=== PATIENT | female | born 1985 | race Two or more races ===

== ENCOUNTER 2018-09-02 06:58 | Emergency (ER) | payer SELFPAY ==
[~2018-09-02] VITALS: Ht 154.9 cm; Wt 67.1 kg
[~2018-09-02 06:58] MED LIST: AMOX1TAB61 PO; OXYC1TAB7 PO
[2018-09-02] MEDS ORDERED: IV NORMAL SALINE 1000ML BAG 1,000 ML IV SCH (07:23)
[2018-09-02] MEDS ORDERED: HYOSCYAMINE 0.125 MG TAB.RAPDIS PO ONE (07:30)
[2018-09-02] MEDS ORDERED: LIDO:MAALOX 1:1 20 ML SINGLE DOSE. SWSW ONE (07:30)
[2018-09-02] MEDS ORDERED: ONDANSETRON PF 4 MG/2 ML VIAL. IV ONE (07:30)
--- NOTE | 2018-09-02 07:30 | PHYS DOC ---
Past Medical History Past Medical History: No Pertinent History Past Surgical History: Appendectomy, , Tubal ligation Alcohol Use: None Drug Use: None Adult General Chief Complaint Chief Complaint: ABDOMINAL PAIN HPI HPI Patient is a 33 year old female who presents with upper abdominal pain that radiates to the back. Burning and cramping. Nausea and vomiting and is present. This started 2 days ago. She had chest pain at the onset of this discomfort. No fevers, no diarrhea. No blood in the emesis. No recent travel. Nothing seems to make the discomfort better or worse. Patient's surgical history is significant for appendectomy, , and tubal ligation.[] Review of Systems Review of Systems Constitutional: Denies fever or chills [] Eyes: Denies change in visual acuity, redness, or eye pain [] HENT: Denies nasal congestion or sore throat [] Respiratory: Denies cough or shortness of breath [] Cardiovascular: No chest pain currently or palpitations[] GI: See history of present illness[] : Denies dysuria or hematuria [] Musculoskeletal: Denies back pain or joint pain [] Integument: Denies rash or skin lesions [] Neurologic: Denies headache, focal weakness or sensory changes [] Endocrine: Denies polyuria or polydipsia [] All other systems were reviewed and found to be within normal limits, except as documented in this note. Current Medications Current Medications Current Medications Medications (Trade) Dose Ordered Sig/Kalpesh Start Time Stop Time Status Last Admin Dose Admin Hyoscyamine (Anaspaz) 0.125 mg ONCE ONCE 09/02/18 07:30 09/02/18 07:31 DC 09/02/18 07:46 0.125 MG Multi-Ingredient Mouthwash/Gargle (Gi Cocktail) 20 ml 1X ONCE 09/02/18 07:30 09/02/18 07:31 DC 09/02/18 07:48 20 ML Ondansetron HCl (Zofran) 4 mg 1X ONCE 09/02/18 07:30 09/02/18 07:31 DC 09/02/18 07:48 4 MG Sodium Chloride 1,000 ml @ 1,000 mls/hr Q1H 09/02/18 07:23 09/02/18 08:22 DC 09/02/18 07:46 1,000 MLS/HR Allergies Allergies Allergies Coded Allergies Type Severity Reaction Last Updated Verified No Known Drug Allergies 10/10/15 No Physical Exam Physical Exam Constitutional: Well developed, well nourished, no acute distress, non-toxic appearance. [] HENT: Normocephalic, atraumatic, bilateral external ears normal, oropharynx moist, no oral exudates, nose normal. [] Eyes: PERRLA, EOMI, conjunctiva normal, no discharge. [] Neck: Normal range of motion, no tenderness, supple, no stridor. [] Cardiovascular:Heart rate regular rhythm, no murmur [] Lungs & Thorax: Bilateral breath sounds clear to auscultation [] Abdomen: Bowel sounds normal, soft, epigastric tenderness, no Polanco's, no McBurney's point tenderness, sits up without any difficulty, no rebound, no guarding, no rigidity, no masses, no pulsatile masses. [] Skin: Warm, dry, no erythema, no rash. [] Back: No tenderness, no CVA tenderness. [] Extremities: No tenderness, no cyanosis, no clubbing, ROM intact, no edema. [] Neurologic: Alert and oriented X 3, normal motor function, normal sensory function, no focal deficits noted. [] Psychologic: Affect normal, judgement normal, mood normal. [] Current Patient Data Vital Signs Vital Signs Date Time Temp Pulse Resp B/P (MAP) Pulse Ox O2 Delivery O2 Flow Rate FiO2 09/02/18 07:05 98.7 66 16 119/83 (95) 98 Room Air 98.7 Lab Values Laboratory Tests Test 09/02/18 07:05 09/02/18 07:14 09/02/18 07:30 Urine Collection Type Unknown Urine Color Yellow Urine Clarity Cloudy Urine pH 5.5 Urine Specific [place] 1.025 Urine Protein Negative mg/dL (NEG-TRACE) Urine Glucose (UA) Negative mg/dL (NEG) Urine Ketones (Stick) Trace mg/dL (NEG) Urine Blood Large (NEG) Urine Nitrite Negative (NEG) Urine Bilirubin Negative (NEG) Urine Urobilinogen Dipstick 0.2 mg/dL (0.2 mg/dL) Urine Leukocyte Esterase Large (NEG) Urine RBC 6-10 /HPF (0-2) Urine WBC >40 /HPF (0-4) Urine Squamous Epithelial Cells Many /LPF Urine Bacteria Moderate /HPF (0-FEW) Urine Mucus Marked /LPF POC Urine HCG, Qualitative Hcg negative (Negative) White Blood Count 11.3 x10^3/uL (4.0-11.0) H Red Blood Count 4.38 x10^6/uL (3.50-5.40) Hemoglobin 12.7 g/dL (12.0-15.5) Hematocrit 38.1 % (36.0-47.0) Mean Corpuscular Volume 87 fL (79-100) Mean Corpuscular Hemoglobin 29 pg (25-35) Mean Corpuscular Hemoglobin Concent 33 g/dL (31-37) Red Cell Distribution Width 13.6 % (11.5-14.5) Platelet Count 385 x10^3/uL (140-400) Neutrophils (%) (Auto) 73 % (31-73) Lymphocytes (%) (Auto) 19 % (24-48) L Monocytes (%) (Auto) 5 % (0-9) Eosinophils (%) (Auto) 2 % (0-3) Basophils (%) (Auto) 1 % (0-3) Neutrophils # (Auto) 8.3 x10^3uL (1.8-7.7) H Lymphocytes # (Auto) 2.1 x10^3/uL (1.0-4.8) Monocytes # (Auto) 0.6 x10^3/uL (0.0-1.1) Eosinophils # (Auto) 0.2 x10^3/uL (0.0-0.7) Basophils # (Auto) 0.1 x10^3/uL (0.0-0.2) Prothrombin Time 12.9 SEC (11.7-14.0) Prothrombin Time INR 1.0 (0.8-1.1) Sodium Level 141 mmol/L (136-145) Potassium Level 4.3 mmol/L (3.5-5.1) Chloride Level 103 mmol/L (98-107) Carbon Dioxide Level 27 mmol/L (21-32) Anion Gap 11 (6-14) Blood Urea Nitrogen 7 mg/dL (7-20) Creatinine 0.6 mg/dL (0.6-1.0) Estimated GFR (Cockcroft-Gault) 113.8 BUN/Creatinine Ratio 12 (6-20) Glucose Level 136 mg/dL (70-99) H Calcium Level 9.3 mg/dL (8.5-10.1) Total Bilirubin 0.3 mg/dL (0.2-1.0) Aspartate Amino Transferase (AST) 12 U/L (15-37) L Alanine Aminotransferase (ALT) 13 U/L (14-59) L Alkaline Phosphatase 50 U/L (46-116) Troponin I Quantitative < 0.017 ng/mL (0.000-0.055) Total Protein 7.6 g/dL (6.4-8.2) Albumin 3.8 g/dL (3.4-5.0) Albumin/Globulin Ratio 1.0 (1.0-1.7) Lipase 163 U/L (73-393) Laboratory Tests 09/02/18 07:30 Laboratory Tests 09/02/18 07:30 EKG EKG EKG showed a sinus rhythm that was irregular at 58 bpm, normal axis, normal QTC , no ST elevations, nonspecific T-wave changes interpreted by me at 0 750[] Radiology/Procedures Radiology/Procedures CT ABDOMEN PELVIS WO CONTRAST Indication: upper abd pain radiates into left side back x 2 days; nausea
evaluate kidney stone
Exposure: One or more of the following individualized dose reduction techniques were utilized for this examination: 1. Automated exposure control 2. Adjustment of the mA and/or kV according to patient size 3. Use of iterative reconstruction technique. Comparison: None are currently available. Technique: No intravenous contrast given. No oral contrast. Urgent interpretation requested. Evaluation of solid viscera, bowel and vasculature is compromised by the noncontrast technique. Lung bases are clear. Liver and spleen unremarkable. Pancreas appears unremarkable. No adrenal mass. No evidence of hydronephrosis or renal calculus. Ureters are not dilated. The ureters are difficult to define in the pelvis. There is a tiny density in the left pelvis, series 3, image 196, measuring about 2 mm, conceivably could represent an intraureteric stone but not certain. No calcified gallstone. Aorta is nonaneurysmal. No significant lymph node enlargement. No evidence of acute colitis. No evidence of significant small bowel distention. The appendix is not definitely visualized. No concerning inflammatory changes in the right lower quadrant. Several small calcifications or surgical clips in the right lower quadrant. Urinary bladder is not adequately distended for evaluation. No evidence of pelvic mass. Vertebral body height and alignment are intact. Subcortical cysts at the anterior femoral head and neck junctions bilaterally, with anterior cortical protuberance at the head and neck junction as well. This combination of findings can be associated with femoroacetabular impingement. IMPRESSION: 1. Small 2 mm density in the left pelvis, possibly distal ureteric calculus. However, no evidence of proximal ureteric dilatation or hydronephrosis. No other evidence of urolithiasis. 2. 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 (See chart for details) ED course: Patient arrived, was placed in bed, and tolerated exam well. She was given IV fluids as well as antiemetics and antispasmodics which improved her symptoms. She was transported to and from [place] with any complications. After the return of the laboratory and imaging findings, these were discussed with her and her who voiced understanding. All questions were answered. Medical decision making: There is no evidence of pancreatitis, obstruction, cholecystitis, perforation or other significant intra-abdominal pathology. Do not believe that this is due to a kidney stone and low likelihood of pyelonephritis given no significant costovertebral angle tenderness. We will treat her with antiemetics, antispasmodics, proton pump inhibitors, and antibiotics for the urinary tract infection. No evidence of this being an acute coronary syndrome despite the chest pain at the onset.[] Dragon Disclaimer Dragon Disclaimer This electronic medical record was generated, in whole or in part, using a voice recognition dictation system. Departure Departure Impression: Primary Impression: Abdominal pain Additional Impressions: Nausea and vomiting Urinary tract infection Disposition: 01 HOME, SELF-CARE Condition: IMPROVED Referrals: NO PCP (PCP) Patient Instructions: Abdominal Pain, Nausea and Vomiting, Urinary Tract Infection Additional Instructions: Drink plenty of fluids, frequent small sips. No fatty foods, no milk, and no pepper for the next 48 hours. For the next 48 hours eat a diet rich in carbohydrates with foods such as bananas, rice, applesauce, and toast. Follow- up with your regular doctor in 2 days. If you do not have a regular doctor list of local clinics will be provided for you to follow-up with in 2 days. Return to the ER if unable to tolerate liquids or any other concerns. Scripts Ondansetron Hcl (ZOFRAN) 4 Mg Tablet 4 MG PO PRN TID PRN for NAUSEA/VOMITING, #15 nausea/vomiting Prov: ARA TORRES DO 09/02/18 Lansoprazole (PREVACID) 15 Mg Capsule.dr 15 MG PO DAILY, #20 CAP Prov: ARA TORRES DO 09/02/18 Hyoscyamine Sulfate (LEVSIN) 0.125 Mg Tablet 0.125 MG PO QID, #30 TAB Prov: ARA TORRES DO 09/02/18 Cephalexin (CEPHALEXIN) 500 Mg Tablet 1 TAB PO TID, #30 TAB Prov: ARA TORRES DO 09/02/18 Problem Qualifiers Primary Impression: Abdominal pain Abdominal location: epigastric Qualified Codes: R10.13 - Epigastric pain Additional Impressions: Nausea and vomiting Vomiting type: unspecified Vomiting Intractability: non-intractable Qualified Codes: R11.2 - Nausea with vomiting, unspecified Urinary tract infection Urinary tract infection type: site unspecified Hematuria presence: without hematuria Qualified Codes: N39.0 - Urinary tract infection, site not specified ARA TORRES DO Sep 02, 2018 07:29
[2018-09-02 07:59] LABS: CALCIUM 9.3 mg/dL (8.5-10.1); CREATININE 0.6 mg/dL (0.6-1.0); GFR 113.8; POTASSIUM 4.3 mmol/L (3.5-5.1)
[2018-09-02 08:04] LABS: BASO # 0.1 x10^3/uL (0.0-0.2); BASO % 1 % (0-3); EOS # 0.2 x10^3/uL (0.0-0.7); EOS % 2 % (0-3); HEMATOCRIT 38.1 % (36.0-47.0); HEMOGLOBIN 12.7 g/dL (12.0-15.5); LYMPH # 2.1 x10^3/uL (1.0-4.8); LYMPH % 19 % (24-48); MEAN CORPUSCULAR HEMOGLOBIN 29 pg (25-35); MEAN CORPUSCULAR HGB CONC 33 g/dL (31-37); MEAN CORPUSCULAR VOLUME 87 fL (79-100); MONO # 0.6 x10^3/uL (0.0-1.1); MONO % 5 % (0-9); NEUT # 8.3 x10^3uL (1.8-7.7); NEUT % 73 % (31-73); PLATELET COUNT 385 x10^3/uL (140-400); RED BLOOD COUNT 4.38 x10^6/uL (3.50-5.40); RED CELL DISTRIBUTION WIDTH 13.6 % (11.5-14.5); WHITE BLOOD COUNT 11.3 x10^3/uL (4.0-11.0)
[2018-09-02 08:05] LABS: ALBUMIN 3.8 g/dL (3.4-5.0); TOTAL BILIRUBIN 0.3 mg/dL (0.2-1.0); TOTAL PROTEIN 7.6 g/dL (6.4-8.2)
[2018-09-02 08:11] LABS: BILIRUBIN,URINE NEGATIVE (NEG); CLARITY,URINE CLOUDY; COLOR,URINE YELLOW; NITRITE,URINE NEGATIVE (NEG); PH,URINE 5.5; PROTEIN,URINE NEGATIVE (NEG-TRACE); UROBILINOGEN,URINE 0.2 mg/dL (0.2 mg/dL)
[2018-09-02 08:17] LABS: BACTERIA,URINE MODERATE /HPF (0-FEW); WBC,URINE >40 /HPF (0-4)
[2018-09-02 08:18] LABS: SQUAMOUS EPITHELIAL CELL,UR MANY /LPF
[2018-09-02 08:24] LABS: PROTHROMBIN TIME PATIENT 12.9 SEC (11.7-14.0)
--- NOTE | 2018-09-02 08:24 | EKG ---
[facility] [address] [place] [address] Test Date: 2018-09-02 Test Time: 07:48:46 Pat Name: AWILDA CARRINGTON Department: Room: Gender: F Plastics Technician: : 1985 Requested By: ARA TORRES Order Number: [id number] Reading MD: Alexis Agutsin MD Measurements Intervals [employer] Rate: 58 P: CA: QRS: 43 QRSD: 84 T: 41 QT: 412 QTc: 404 Interpretive Statements SR NON-SPECIFIC ST/T CHANGES Electronically Signed On 09-12-2018 21:58:35 CDT by Alexis Agustin MD
--- NOTE | 2018-09-02 08:36 | RAD ---
CT ABDOMEN PELVIS WO CONTRAST Indication: upper abd pain radiates into left side back x 2 days; nausea
evaluate kidney stone
Exposure: One or more of the following individualized dose reduction techniques were utilized for this examination: 1. Automated exposure control 2. Adjustment of the mA and/or kV according to patient size 3. Use of iterative reconstruction technique. Comparison: None are currently available. Technique: No intravenous contrast given. No oral contrast. Urgent interpretation requested. Evaluation of solid viscera, bowel and vasculature is compromised by the noncontrast technique. Lung bases are clear. Liver and spleen unremarkable. Pancreas appears unremarkable. No adrenal mass. No evidence of hydronephrosis or renal calculus. Ureters are not dilated. The ureters are difficult to define in the pelvis. There is a tiny density in the left pelvis, series 3, image 196, measuring about 2 mm, conceivably could represent an intraureteric stone but not certain. No calcified gallstone. Aorta is nonaneurysmal. No significant lymph node enlargement. No evidence of acute colitis. No evidence of significant small bowel distention. The appendix is not definitely visualized. No concerning inflammatory changes in the right lower quadrant. Several small calcifications or surgical clips in the right lower quadrant. Urinary bladder is not adequately distended for evaluation. No evidence of pelvic mass. Vertebral body height and alignment are intact. Subcortical cysts at the anterior femoral head and neck junctions bilaterally, with anterior cortical protuberance at the head and neck junction as well. This combination of findings can be associated with femoroacetabular impingement. IMPRESSION: 1. Small 2 mm density in the left pelvis, possibly distal ureteric calculus. However, no evidence of proximal ureteric dilatation or hydronephrosis. No other evidence of urolithiasis. 2. 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 Electronically signed by: Layton Chance MD (09/02/2018 8:32 AM) [facility]
[2018-09-02 09:00] VITALS: BP 120/69
[2018-09-02] MEDS ORDERED: HYOS0.1264 PO (09:13)
[2018-09-02] MEDS ORDERED: LANS15CA78 PO (09:13)
[2018-09-02] MEDS ORDERED: CEPH500T PO (09:13)
[2018-09-02] MEDS ORDERED: ONDA4TAB7 PO (09:13)
== END 2018-09-02 09:28 | disposition home or self-care (01) ==
LOC: ER 06:58
DX: N39.0 Urinary tract infection, site not specified (principal); R10.13 Epigastric pain; R11.2 Nausea with vomiting, unspecified; Z90.89 Acquired absence of other organs; Z98.890 Other specified postprocedural states; Z98.51 Tubal ligation status
CPT/HCPCS: 36415; 74176; 80053; 81001; 81025; 83690; 84484; 85025; 85610; 93005; 96361; 96374; 99284; J2405; J7030; 87086

== ENCOUNTER 2018-09-02 19:18 | Inpatient (IN) | payer SELFPAY ==
[~2018-09-02] VITALS: Ht 154.9 cm; Wt 69.6 kg
[~2018-09-02 19:18] MED LIST changes: +CEPH500T PO; +HYOS0.1264 PO; +LANS15CA78 PO; +ONDA4TAB7 PO
[2018-09-02] MEDS ORDERED: ONDANSETRON PF 4 MG/2 ML VIAL. ONE (20:48)
[2018-09-02] MEDS ORDERED: fentaNYL PF VIAL 100 MCG/2 ML VIAL ONE (20:48)
[2018-09-02] MEDS ORDERED: ONDANSETRON PF 4 MG/2 ML VIAL. IV ONE ×2 (21:00→22:30)
[2018-09-02] MEDS ORDERED: IV NORMAL SALINE 1000ML BAG 1,000 ML IV ONE (21:00)
[2018-09-02] MEDS ORDERED: fentaNYL PF VIAL 100 MCG/2 ML VIAL IV ONE (21:00)
[2018-09-02] MEDS ORDERED: LIDO:MAALOX 1:1 20 ML SINGLE DOSE. SWSW ONE (21:15)
[2018-09-02 21:16] LABS: BASO # 0.1 x10^3/uL (0.0-0.2); BASO % 1 % (0-3); EOS # 0.1 x10^3/uL (0.0-0.7); EOS % 1 % (0-3); HEMATOCRIT 36.4 % (36.0-47.0); HEMOGLOBIN 12.3 g/dL (12.0-15.5); LYMPH # 2.2 x10^3/uL (1.0-4.8); LYMPH % 16 % (24-48); MEAN CORPUSCULAR HEMOGLOBIN 29 pg (25-35); MEAN CORPUSCULAR HGB CONC 34 g/dL (31-37); MEAN CORPUSCULAR VOLUME 87 fL (79-100); MONO % 7 % (0-9); NEUT # 10.4 x10^3uL (1.8-7.7); NEUT % 76 % (31-73); PLATELET COUNT 369 x10^3/uL (140-400); RED BLOOD COUNT 4.21 x10^6/uL (3.50-5.40); RED CELL DISTRIBUTION WIDTH 13.6 % (11.5-14.5); WHITE BLOOD COUNT 13.7 x10^3/uL (4.0-11.0)
[2018-09-02 21:26] LABS: CALCIUM 8.7 mg/dL (8.5-10.1); CREATININE 0.6 mg/dL (0.6-1.0); GFR 113.8
[2018-09-02 21:32] LABS: ALBUMIN 3.7 g/dL (3.4-5.0); ALBUMIN/GLOBULIN RATIO 0.9 (1.0-1.7); TOTAL BILIRUBIN 0.4 mg/dL (0.2-1.0); TOTAL PROTEIN 7.6 g/dL (6.4-8.2)
[2018-09-02] MEDS ORDERED: MORPHINE SULFATE 4 MG/ML VIAL. IV ONE (22:30)
[2018-09-02] MEDS ORDERED: ONDANSETRON PF 4 MG/2 ML VIAL. IV PRN (22:45)
[2018-09-02] MEDS ORDERED: PIP/TAZO PER PHARMACY MC PRN (22:45)
[2018-09-02] MEDS ORDERED: PIPERACILLIN/TAZOBACTAM 3.375 GM in IV NORMAL SALINE 50ML 50 ML IV ONE (23:00)
[2018-09-02] MEDS: IV NORMAL SALINE 1000ML BAG 1,000 ML IV SCH (23:04)
--- NOTE | 2018-09-02 23:08 | RAD ---
Limited abdomen ultrasound HISTORY: Right upper quadrant abdominal pain, nausea and vomiting. FINDINGS: There are layering dependent gallstones and positive sonographic Polanco sign. Gallbladder wall thickness measures 3.3 mm upper limits of normal. No biliary ductal dilation common body diameters 4 mm. Mild increased liver echogenicity likely steatosis. No liver mass documented. Right renal length 11.3 cm. No evidence right renal mass, calculus or hydronephrosis. Spleen and left kidney were not evaluated. Pancreas is unremarkable. Limited visualization of the aorta. Upper abdominal IVC is normal. IMPRESSION: 1. Cholelithiasis. Borderline gallbladder wall thickening. There is a positive sonographic Polanco sign could indicate early imaging features of cholecystitis. No biliary ductal dilation. 2. Probable liver steatosis. Electronically signed by: Morgan Cantrell MD (09/02/2018 11:06 PM) [facility]
[2018-09-02] MEDS ORDERED: METOCLOPRAMIDE HCL 10 MG/2 ML VIAL. IV ONE (23:15)
[2018-09-02 23:30] VITALS: BP 131/89
--- NOTE | 2018-09-02 23:53 | PHYS DOC ---
Past Medical History Past Medical History: No Pertinent History Past Surgical History: Appendectomy, , Tubal ligation Alcohol Use: None Drug Use: None Adult General Chief Complaint Chief Complaint: ABDOMINAL PAIN HPI HPI Patient is a 33 yo female who presents with complaint of epigastric and RUQ which radiate through to her back. Patient was seen in ED earlier today (09/02/18 ) with similar symptoms, diagnosed with UTI and discharged home on antiemetics, antispasmodics, and antibiotics. She returned to ED this evening complaining that she has had no symptomatic relief. She states the pain began yesterday and has consistently worsened. Patient also reports nausea and vomiting. She admits burning with urination and the occasional presence of blood on the toilet paper after wiping. She denies diarrhea or constipation. She denies bloody or coffee ground emesis. Patient denies recent international travel. She has not tried any medication for pain relief besides what she was prescribed from [facility] ED earlier today. History obtained in Indonesian from patient and patient's partner. Of note patient has had hysterectomy and appendectomy. Review of Systems Review of Systems Constitutional: Denies fever or chills [] Respiratory: Denies cough or shortness of breath [] Cardiovascular: Denies chest pain, denies palpitations. GI: Admits abdominal pain, nausea and bile colored vomiting. Denies diarrhea or constipation. : Admits dysuria. Admits to wiping blood after urinating Musculoskeletal: Admits diffuse midline mid thoracic back pain. All other systems were reviewed and found to be within normal limits, except as documented in this note. Current Medications Current Medications Current Medications Medications (Trade) Dose Ordered Sig/Kalpesh Start Time Stop Time Status Last Admin Dose Admin Fentanyl Citrate (Fentanyl 2ml Vial) 50 mcg 1X ONCE 09/02/18 21:00 09/02/18 21:01 DC 09/02/18 20:58 50 MCG Multi-Ingredient Mouthwash/Gargle (Gi Cocktail) 20 ml 1X ONCE 09/02/18 21:15 09/02/18 21:16 DC 09/02/18 21:22 20 ML Ondansetron HCl (Zofran) 4 mg 1X ONCE 09/02/18 21:00 09/02/18 21:01 DC 09/02/18 20:57 4 MG Sodium Chloride 1,000 ml @ 1,000 mls/hr 1X ONCE 09/02/18 21:00 09/02/18 21:59 DC 09/02/18 20:58 1,000 MLS/HR Allergies Allergies Allergies Coded Allergies Type Severity Reaction Last Updated Verified No Known Drug Allergies 10/10/15 No Physical Exam Physical Exam Constitutional: Well developed, well nourished, tearful, vomiting, clearly uncomfortable HENT: Normocephalic, atraumatic, Neck: Normal range of motion Cardiovascular:Heart rate regular rhythm, no murmur [] Lungs & Thorax: Bilateral breath sounds clear to auscultation [] Abdomen: Bowel sounds normal, soft, Positive polanco's sign. Skin: Warm, dry, no erythema, no rash. [] Back: Mildly tender to palpation. No lesions or rashes noted. No appreciable deformities or step offs] Neurologic: Alert and oriented X 3, normal motor function, normal sensory function, no focal deficits noted. [] Current Patient Data Vital Signs Vital Signs Date Time Temp Pulse Resp B/P (MAP) Pulse Ox O2 Delivery O2 Flow Rate FiO2 09/02/18 20:58 16 99 Room Air 09/02/18 20:54 74 120/73 (89) 09/02/18 19:20 98.6 98.6 Lab Values Laboratory Tests Test 09/02/18 20:44 White Blood Count 13.7 x10^3/uL (4.0-11.0) H Red Blood Count 4.21 x10^6/uL (3.50-5.40) Hemoglobin 12.3 g/dL (12.0-15.5) Hematocrit 36.4 % (36.0-47.0) Mean Corpuscular Volume 87 fL (79-100) Mean Corpuscular Hemoglobin 29 pg (25-35) Mean Corpuscular Hemoglobin Concent 34 g/dL (31-37) Red Cell Distribution Width 13.6 % (11.5-14.5) Platelet Count 369 x10^3/uL (140-400) Neutrophils (%) (Auto) 76 % (31-73) H Lymphocytes (%) (Auto) 16 % (24-48) L Monocytes (%) (Auto) 7 % (0-9) Eosinophils (%) (Auto) 1 % (0-3) Basophils (%) (Auto) 1 % (0-3) Neutrophils # (Auto) 10.4 x10^3uL (1.8-7.7) H Lymphocytes # (Auto) 2.2 x10^3/uL (1.0-4.8) Monocytes # (Auto) 1.0 x10^3/uL (0.0-1.1) Eosinophils # (Auto) 0.1 x10^3/uL (0.0-0.7) Basophils # (Auto) 0.1 x10^3/uL (0.0-0.2) Sodium Level 140 mmol/L (136-145) Potassium Level 4.0 mmol/L (3.5-5.1) Chloride Level 101 mmol/L (98-107) Carbon Dioxide Level 28 mmol/L (21-32) Anion Gap 11 (6-14) Blood Urea Nitrogen 3 mg/dL (7-20) L Creatinine 0.6 mg/dL (0.6-1.0) Estimated GFR (Cockcroft-Gault) 113.8 BUN/Creatinine Ratio 5 (6-20) L Glucose Level 115 mg/dL (70-99) H Calcium Level 8.7 mg/dL (8.5-10.1) Total Bilirubin 0.4 mg/dL (0.2-1.0) Aspartate Amino Transferase (AST) 15 U/L (15-37) Alanine Aminotransferase (ALT) 13 U/L (14-59) L Alkaline Phosphatase 52 U/L (46-116) Total Protein 7.6 g/dL (6.4-8.2) Albumin 3.7 g/dL (3.4-5.0) Albumin/Globulin Ratio 0.9 (1.0-1.7) L Lipase 121 U/L (73-393) Laboratory Tests 09/02/18 20:44 Laboratory Tests 09/02/18 20:44 EKG EKG [] Radiology/Procedures Radiology/Procedures [PROCEDURE: ABDOMEN LTD Limited abdomen ultrasound HISTORY: Right upper quadrant abdominal pain, nausea and vomiting. FINDINGS: There are layering dependent gallstones and positive sonographic Polanco sign. Gallbladder wall thickness measures 3.3 mm upper limits of normal. No biliary ductal dilation common body diameters 4 mm. Mild increased liver echogenicity likely steatosis. No liver mass documented. Right renal length 11.3 cm. No evidence right renal mass, calculus or hydronephrosis. Spleen and left kidney were not evaluated. Pancreas is unremarkable. Limited visualization of the aorta. Upper abdominal IVC is normal. IMPRESSION: 1. Cholelithiasis. Borderline gallbladder wall thickening. There is a positive sonographic Polanco sign could indicate early imaging features of cholecystitis. No biliary ductal dilation. 2. Probable liver steatosis. Electronically signed by: Jesus Cantrell MD (09/02/2018 11:06 PM) [facility] DICTATED and SIGNED BY: JESUS CANTRELL MD DATE: 09/02/18 2306 ] Course & Med Decision Making Course & Med Decision Making Patient is a 33 yo female, Patient returned with complaint of constant , unrelenting abdominal pain. On physical exam vitals are WNL, however patient is diaphoretic, vomiting, and uncomfortable. Abdominal exam significant for epigastric and RUQ tenderness with positive polanco's sign. Remainder of physical exam unremarkable. As patient had CT abd/pelvis earlier today with only significant finding of 2mm density in L pelvis, patient underwent gallbladder US which was significant for cholelithiasis and probable cholelithiasis. Labs revealed elevated WBC and lipase WNL, with values similar to those from earlier today. Addressed patient's pain with multiple doses of toradol and zofran. Patient continued to have pain and vomiting and was treated with morphine and Reglan. Discussed case with Dragan (surgery) who agreed with plan for IV abx and admission. Patietnw as admitted to [facility] for further evaluation. Discussed plan for inpatient hospitalization with patient and partner who verbalized understanding and agreement with plan. Dragon Disclaimer Dragon Disclaimer This electronic medical record was generated, in whole or in part, using a voice recognition dictation system. Departure Departure Impression: Primary Impression: Cholecystitis Disposition: ADMITTED INPATIENT Condition: STABLE Referrals: NO PCP (PCP) COCO LUCERO MD Sep 02, 2018 23:53
[2018-09-03] VITALS (14 sets, daily range): BP systolic 98–121; BP diastolic 56–79
[2018-09-03] MEDS: MORPHINE SULFATE 4 MG/ML VIAL. IV PRN ×2 (01:23→05:44)
[2018-09-03] MEDS: PIPERACILLIN/TAZOBACTAM 3.375 GM in IV NORMAL SALINE 50ML 50 ML IV SCH ×3 (05:46→17:27)
--- NOTE | 2018-09-03 07:18 | NUR ---
admitted to room 422 at 2330 09/02/18, admission assessment done, POC discussed to pt and verbalized understanding .
--- NOTE | 2018-09-03 07:41 | PDOC1 ---
History and Physical Date of Admission Date of Admission DATE: 09/03/18 TIME: 07:32 Identification/Chief Complaint Chief Complaint Abdominal Pain Source Source: Caregiver, Chart review, Patient History of Present Illness History of Present Illness 33 yo female w/ PMHx appendectomy, tubal ligation, gestational diabetes who presents with complaint of epigastric and RUQ which radiate through to her back. Patient was seen in ED yestereday (09/02/18) with similar symptoms, diagnosed with UTI and discharged home on antiemetics, antispasmodics, and antibiotics. She returned to ED this evening complaining that she has had no symptomatic relief. Now she also reports nausea and vomiting. She admits burning with urination and the occasional presence of blood on the toilet paper after wiping. She denies diarrhea or constipation. She denies bloody or coffee ground emesis. Patient denies recent international travel. She has not tried any medication for pain relief. History obtained in Indonesian from patient and patient 's partner. Of note patient has had hysterectomy and appendectomy (10/10/2015). On imaging found with borderline gallbladder wall thickening and a positive sonographic Polanco sign with no ductal dilatation on US and small 2 mm density in the left pelvis, possibly distal ureteric calculus on CT abdomen/pelvis earlier in the day. WBC 13.7 She has an 18, 15, and 2yo at home, worried about carrying her 2yo. Past Medical History Cardiovascular: No pertinent hx Pulmonary: No pertinent hx GI: No pertinent hx Heme/Onc: No pertinent hx Hepatobiliary: No pertinent hx Psych: No pertinent hx Rheumatologic: No pertinent hx Infectious disease: No pertinent hx Renal/: No pertinent hx Endocrine: Other (GESTATIONAL DIABETES) Dermatology: No pertinent hx Grav: 3 Para: 3 Past Surgical History Past Surgical History: Appendectomy, Family History Family History: Diabetes, High Cholestrol Social History Smoke: No ALCOHOL: none Drugs: None Current Medications Current Medications Current Medications Ondansetron HCl (Zofran) 4 mg STK-MED ONCE .ROUTE ; Start 09/02/18 at 20:48; Stop 09/02/18 at 20:49; Status DC Fentanyl Citrate (Fentanyl 2ml Vial) 100 mcg STK-MED ONCE .ROUTE ; Start at 20:48; Stop 09/02/18 at 20:49; Status DC Sodium Chloride 1,000 ml @ 1,000 mls/hr 1X ONCE IV Last administered on 20:58; Start 09/02/18 at 21:00; Stop 09/02/18 at 21:59; Status DC Ondansetron HCl (Zofran) 4 mg 1X ONCE IV Last administered on 09/02/18 20:57; Start 09/02/18 at 21:00; Stop 09/02/18 at 21:01; Status DC Fentanyl Citrate (Fentanyl 2ml Vial) 50 mcg 1X ONCE IV Last administered on 20:58; Start 09/02/18 at 21:00; Stop 09/02/18 at 21:01; Status DC Multi-Ingredient Mouthwash/Gargle (Gi Cocktail) 20 ml 1X ONCE SWSW Last administered on 09/02/18at 21:22; Start 09/02/18 at 21:15; Stop 09/02/18 at 21:16; Status DC Morphine Sulfate (Morphine Sulfate) 4 mg 1X ONCE IV Last administered on at 22:32; Start 09/02/18 at 22:30; Stop 09/02/18 at 22:31; Status DC Ondansetron HCl (Zofran) 4 mg 1X ONCE IV Last administered on 09/02/18 22:33; Start 09/02/18 at 22:30; Stop 09/02/18 at 22:31; Status DC Ondansetron HCl (Zofran) 4 mg PRN Q8HRS PRN IV NAUSEA/VOMITING; Start 09/02/18 at 22:45; Stop 09/03/18 at 22:44 Morphine Sulfate (Morphine Sulfate) 4 mg PRN Q2HR PRN IV PAIN Last administered on 09/03/18 05:44; Start 09/02/18 at 22:45; Stop 09/03/18 at 22:44 Sodium Chloride 1,000 ml @ 100 mls/hr Q10H IV Last administered on 09/02/18at 23 :04; Start 09/02/18 at 22:45; Stop 09/03/18 at 22:44 Piperacillin Sod/ Tazobactam Sod (Zosyn Per Pharmacy) 1 each PRN DAILY PRN MC SEE COMMENTS; Start 09/02/18 at 22:45 Piperacillin Sod/ Tazobactam Sod 3.375 gm/Sodium Chloride 50 ml @ 100 mls/hr 1X ONCE IV Last administered on 09/02/18at 22:53; Start 09/02/18 at 23:00; Stop 09/02/18 at 23:29; Status DC Piperacillin Sod/ Tazobactam Sod 3.375 gm/Sodium Chloride 50 ml @ 100 mls/hr Q6HRS IV Last administered on 09/03/18at 05:46; Start 09/03/18 at 06:00 Metoclopramide HCl (Reglan Vial) 10 mg 1X ONCE IV Last administered on at 23:23; Start 09/02/18 at 23:15; Stop 09/02/18 at 23:16; Status DC Active Scripts Active Zofran (Ondansetron Hcl) 4 Mg Tablet 4 Mg PO PRN TID PRN nausea/vomiting Prevacid (Lansoprazole) 15 Mg Capsule.dr 15 Mg PO DAILY Levsin (Hyoscyamine Sulfate) 0.125 Mg Tablet 0.125 Mg PO QID Cephalexin 500 Mg Tablet 1 Tab PO TID Oxycodone-Acetaminophen 5-325 (Oxycodone Hcl/Acetaminophen) 1 Each Tablet 1 Tab PO PRN Q4HRS PRN Reported Augmentin 875-125 Tablet (Amoxicillin/Potassium Clav) 1 Each Tablet 1 Tab PO BID Allergies Allergies: Coded Allergies: No Known Drug Allergies (Unverified , 10/10/15) ROS General: YES: Fatigue, Malaise; No: Chills, Night Sweats, Appetite, Other PSYCHOLOGICAL ROS: No: Anxiety, Behavioral Disorder, Concentration difficultie , Decreased libido, Depression, Disorientation, Hallucinations, Hostility, Irritablity, Memory difficulties, Mood Swings, Obsessive thoughts, Physical abuse, Sexual abuse, Sleep disturbances, Suicidal ideation, Other Eyes: No Blurry vision, No Decreased vision, No Double vision, No Dry eyes, No Excessive tearing, No Eye Pain, No Itchy Eyes, No Loss of vision, No Photophobia , No Scotomata, No Uses contacts, No Uses glasses, No Other HEENT: No: Heacaches, Visual Changes, Hearing change, Nasal congestion, Nasal discharge, Oral lesions, Sinus pain, Sore Throat, Epistaxis, Sneezing, Snoring, Tinnitus, Vertigo, Vocal changes, Other ALLERGY AND IMMUNOLOGY: No: Hives, Insect Bite Sensitivity, Itchy/Watery Eyes, Nasal Congestion, Post Nasal Drip, Seasonal Allergies, Other Hematological and Lymphatic: No: Bleeding Problems, Blood Clots, Blood Transfusions, Brusing, Night Sweats, Pallor, Swollen Lymph Nodes, Other ENDOCRINE: No: Breast Changes, Galactorrhea, Hair Pattern Changes, Hot Flashes , Malaise/lethargy, Mood Swings, Palpitations, Polydipsia/polyuria, Skin Changes , Temperature Intolerance, Unexpected Weight Changes, Other Breast: No New/Changing Breast Lumps, No Nipple changes, No Nipple discharge, No Other Respiratory: No: Cough, Hemoptysis, Orthopnea, Pleuritic Pain, Shortness of breath, SOB with excertion, Sputum Changes, Stridor, Tachypnea, Wheezing, Other Cardiovascular: No Chest Pain, No Palpitations, No Orthopnea, No Paroxysmal Noc. Dyspnea, No Edema, No Lt Headedness, No Other Gastrointestinal: Yes Nausea, Yes Vomiting, Yes Abdominal Pain; No Diarrhea, No Constipation, No Melena, No Hematochezia, No Other Genitourinary: YES Dysuria, YES Frequency; No Incontinence, No Hematuria, No Retention, No Discharge, No Urgency, No Pain, No Flank Pain, No Other, No , No , No , No , No , No , No Musculoskeletal: No Gait Disturbance, No Joint Pain, No Joint Stiffness, No Joint Swelling, No Muscle Pain, No Muscular Weakness, No Pain In:, No Swelling In:, No Other Neurological: No Behavorial Changes, No Bowel/Bladder ControlChng, No Confusion , No Dizziness, No Gait Disturbance, No Headaches, No Impaired Coord/balance, No Memory Loss, No Numbness/Tingling, No Seizures, No Speech Problems, No Tremors, No Visual Changes, No Weakness, No Other Skin: No Dry Skin, No Eczema, No Hair Changes, No Lumps, No Mole Changes, No Mottling, No Nail Changes, No Pruritus, No Rash, No Skin Lesion Changes, No Other, No Acne Physical Exam General: Alert, Oriented X3, Cooperative, No acute distress HEENT: Atraumatic, PERRLA, EOMI, Mucous membr. moist/pink Lungs: Clear to auscultation, Normal air movement Heart: S1S2, RRR, no gallops, no murmurs Abdomen: Normal bowel sounds, Soft, No hepatosplenomegaly, No masses, Other ( RUQ tender, positive polanco sign) Rectal Exam: not examined Extremities: No clubbing, No cyanosis, No edema, Normal pulses, No tenderness/ swelling Skin: No rashes, No breakdown, No significant lesion Neuro: Normal gait, Normal speech, Strength at 5/5 X4 ext, Normal tone, Sensation intact, Cranial nerves 3-12 NL, Reflexes 2+ Psych/Mental Status: Mental status NL, Mood NL Vitals Vitals Vital Signs Date Time Temp Pulse Resp B/P (MAP) Pulse Ox O2 Delivery O2 Flow Rate FiO2 09/03/18 06:14 20 97 09/03/18 03:00 98.3 71 105/68 (80) Room Air 98.3 Labs Labs Laboratory Tests Test 09/02/18 20:44 White Blood Count 13.7 x10^3/uL (4.0-11.0) Red Blood Count 4.21 x10^6/uL (3.50-5.40) Hemoglobin 12.3 g/dL (12.0-15.5) Hematocrit 36.4 % (36.0-47.0) Mean Corpuscular Volume 87 fL (79-100) Mean Corpuscular Hemoglobin 29 pg (25-35) Mean Corpuscular Hemoglobin Concent 34 g/dL (31-37) Red Cell Distribution Width 13.6 % (11.5-14.5) Platelet Count 369 x10^3/uL (140-400) Neutrophils (%) (Auto) 76 % (31-73) Lymphocytes (%) (Auto) 16 % (24-48) Monocytes (%) (Auto) 7 % (0-9) Eosinophils (%) (Auto) 1 % (0-3) Basophils (%) (Auto) 1 % (0-3) Neutrophils # (Auto) 10.4 x10^3uL (1.8-7.7) Lymphocytes # (Auto) 2.2 x10^3/uL (1.0-4.8) Monocytes # (Auto) 1.0 x10^3/uL (0.0-1.1) Eosinophils # (Auto) 0.1 x10^3/uL (0.0-0.7) Basophils # (Auto) 0.1 x10^3/uL (0.0-0.2) Sodium Level 140 mmol/L (136-145) Potassium Level 4.0 mmol/L (3.5-5.1) Chloride Level 101 mmol/L (98-107) Carbon Dioxide Level 28 mmol/L (21-32) Anion Gap 11 (6-14) Blood Urea Nitrogen 3 mg/dL (7-20) Creatinine 0.6 mg/dL (0.6-1.0) Estimated GFR (Cockcroft-Gault) 113.8 BUN/Creatinine Ratio 5 (6-20) Glucose Level 115 mg/dL (70-99) Calcium Level 8.7 mg/dL (8.5-10.1) Total Bilirubin 0.4 mg/dL (0.2-1.0) Aspartate Amino Transf (AST/SGOT) 15 U/L (15-37) Alanine Aminotransferase (ALT/SGPT) 13 U/L (14-59) Alkaline Phosphatase 52 U/L (46-116) Total Protein 7.6 g/dL (6.4-8.2) Albumin 3.7 g/dL (3.4-5.0) Albumin/Globulin Ratio 0.9 (1.0-1.7) Lipase 121 U/L (73-393) Laboratory Tests Test 09/02/18 20:44 White Blood Count 13.7 x10^3/uL (4.0-11.0) Red Blood Count 4.21 x10^6/uL (3.50-5.40) Hemoglobin 12.3 g/dL (12.0-15.5) Hematocrit 36.4 % (36.0-47.0) Mean Corpuscular Volume 87 fL (79-100) Mean Corpuscular Hemoglobin 29 pg (25-35) Mean Corpuscular Hemoglobin Concent 34 g/dL (31-37) Red Cell Distribution Width 13.6 % (11.5-14.5) Platelet Count 369 x10^3/uL (140-400) Neutrophils (%) (Auto) 76 % (31-73) Lymphocytes (%) (Auto) 16 % (24-48) Monocytes (%) (Auto) 7 % (0-9) Eosinophils (%) (Auto) 1 % (0-3) Basophils (%) (Auto) 1 % (0-3) Neutrophils # (Auto) 10.4 x10^3uL (1.8-7.7) Lymphocytes # (Auto) 2.2 x10^3/uL (1.0-4.8) Monocytes # (Auto) 1.0 x10^3/uL (0.0-1.1) Eosinophils # (Auto) 0.1 x10^3/uL (0.0-0.7) Basophils # (Auto) 0.1 x10^3/uL (0.0-0.2) Sodium Level 140 mmol/L (136-145) Potassium Level 4.0 mmol/L (3.5-5.1) Chloride Level 101 mmol/L (98-107) Carbon Dioxide Level 28 mmol/L (21-32) Anion Gap 11 (6-14) Blood Urea Nitrogen 3 mg/dL (7-20) Creatinine 0.6 mg/dL (0.6-1.0) Estimated GFR (Cockcroft-Gault) 113.8 BUN/Creatinine Ratio 5 (6-20) Glucose Level 115 mg/dL (70-99) Calcium Level 8.7 mg/dL (8.5-10.1) Total Bilirubin 0.4 mg/dL (0.2-1.0) Aspartate Amino Transf (AST/SGOT) 15 U/L (15-37) Alanine Aminotransferase (ALT/SGPT) 13 U/L (14-59) Alkaline Phosphatase 52 U/L (46-116) Total Protein 7.6 g/dL (6.4-8.2) Albumin 3.7 g/dL (3.4-5.0) Albumin/Globulin Ratio 0.9 (1.0-1.7) Lipase 121 U/L (73-393) Images Images Abd US - 1. Cholelithiasis. Borderline gallbladder wall thickening. There is a positive sonographic Polanco sign could indicate early imaging features of cholecystitis. No biliary ductal dilation. 2. Probable liver steatosis. CT abd/pelvis 1. Small 2 mm density in the left pelvis, possibly distal ureteric calculus. However, no evidence of proximal ureteric dilatation or hydronephrosis. No other evidence of urolithiasis. 2. 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 VTE Prophylaxis Ordered VTE Prophylaxis Devices: Yes VTE Pharmacological Prophylaxi: No Assessment/Plan Assessment/Plan A/P: Abdominal pain - with mild leukocytosis and positive sonographic polanco's sign, this is equivocal, but leaning toward cholecystitis. Likely at some point needs to have cholecystectomy, given she has already come twice with symptoms to the ED, this may be indicated this stay. Consult general surgery. NPO Overweight - risk factor for GB disease, along with gender, fertility Hyperglycemia - with PMHx of gestational DM, could be secondary to stress. Had fasting glucose > 140 back in 2015, will check A1c and lipids on her UTI - awaiting culture results, positive LE. Cont zosyn for coverage FEN - NPO PPX - SCDs FULL CODE Inpatient for likely cholecystitis. She is scared about surgery, but states if necessary she would like the pain to go away as it is still present despite 1 day of NPO and IV pain medications. D/w patient and significant other bedside, she wishes to go forward with surgery. CHARAN ANTONIO MD Sep 03, 2018 07:41
[2018-09-03] MEDS ORDERED: BUPIVAC MPF-EPI 0.5%-1:200000 30 ML VIAL. ONE (08:26)
[2018-09-03] MEDS ORDERED: GLUCAGON,HUMAN RECOMBINANT 1 MG/ML VIAL. ONE (08:26)
[2018-09-03] MEDS ORDERED: SURGICEL HEMOSTAT 4X8 EACH. ONE (08:26)
[2018-09-03] MEDS ORDERED: IOHEXOL 300 MG/ML 100ML VIAL. ONE (08:26)
[2018-09-03] MEDS: IV NORMAL SALINE 1000ML BAG 1,000 ML IV SCH ×2 (08:45→18:17)
[2018-09-03] MEDS: HYOSCYAMINE 0.125 MG TAB.RAPDIS PO SCH ×4 (08:51→21:24)
--- NOTE | 2018-09-03 09:14 | PDOC2 ---
CONSULT Date of Consult Date of Consult DATE: 09/03/18 TIME: 09:07 Reason for Consult Reason for Consult: symptomatic cholelithiasis Referring Physician Referring Physician: Dr Cha Identification/Chief Complaint Chief Complaint RUQ pain Source Source: Caregiver, Chart review, Patient History of Present Illness Reason for Visit: Marsha is a 33 yo female who made her second visit to the ED last noc for RUQ pain . US showed stones and mild inflammation. We are asked to see for same Past Medical History Cardiovascular: No pertinent hx Pulmonary: No pertinent hx GI: No pertinent hx Heme/Onc: No pertinent hx Hepatobiliary: No pertinent hx Psych: No pertinent hx Rheumatologic: No pertinent hx Infectious disease: No pertinent hx Renal/: No pertinent hx Endocrine: No pertinent hx Past Surgical History Past Surgical History: Appendectomy, , Other (tubal) Family History Family History: No Significant Social History No ALCOHOL: none Drugs: None Current Medications Current Medications Current Medications Ondansetron HCl (Zofran) 4 mg STK-MED ONCE .ROUTE ; Start 09/02/18 at 20:48; Stop 09/02/18 at 20:49; Status DC Fentanyl Citrate (Fentanyl 2ml Vial) 100 mcg STK-MED ONCE .ROUTE ; Start at 20:48; Stop 09/02/18 at 20:49; Status DC Sodium Chloride 1,000 ml @ 1,000 mls/hr 1X ONCE IV Last administered on at 20:58; Start 09/02/18 at 21:00; Stop 09/02/18 at 21:59; Status DC Ondansetron HCl (Zofran) 4 mg 1X ONCE IV Last administered on 09/02/18at 20:57; Start 09/02/18 at 21:00; Stop 09/02/18 at 21:01; Status DC Fentanyl Citrate (Fentanyl 2ml Vial) 50 mcg 1X ONCE IV Last administered on 09/02/18at 20:58; Start 09/02/18 at 21:00; Stop 09/02/18 at 21:01; Status DC Multi-Ingredient Mouthwash/Gargle (Gi Cocktail) 20 ml 1X ONCE SWSW Last administered on 09/02/18at 21:22; Start 09/02/18 at 21:15; Stop 09/02/18 at 21:16; Status DC Morphine Sulfate (Morphine Sulfate) 4 mg 1X ONCE IV Last administered on 22:32; Start 09/02/18 at 22:30; Stop 09/02/18 at 22:31; Status DC Ondansetron HCl (Zofran) 4 mg 1X ONCE IV Last administered on 09/02/18at 22:33; Start 09/02/18 at 22:30; Stop 09/02/18 at 22:31; Status DC Ondansetron HCl (Zofran) 4 mg PRN Q8HRS PRN IV NAUSEA/VOMITING; Start 09/02/18 at 22:45; Stop 09/03/18 at 22:44 Morphine Sulfate (Morphine Sulfate) 4 mg PRN Q2HR PRN IV PAIN Last administered on 09/03/18at 05:44; Start 09/02/18 at 22:45; Stop 09/03/18 at 22:44 Sodium Chloride 1,000 ml @ 100 mls/hr Q10H IV Last administered on 09/02/18at 23 :04; Start 09/02/18 at 22:45; Stop 09/03/18 at 22:44 Piperacillin Sod/ Tazobactam Sod (Zosyn Per Pharmacy) 1 each PRN DAILY PRN MC SEE COMMENTS; Start 09/02/18 at 22:45 Piperacillin Sod/ Tazobactam Sod 3.375 gm/Sodium Chloride 50 ml @ 100 mls/hr 1X ONCE IV Last administered on 09/02/18at 22:53; Start 09/02/18 at 23:00; Stop 09/02/18 at 23:29; Status DC Piperacillin Sod/ Tazobactam Sod 3.375 gm/Sodium Chloride 50 ml @ 100 mls/hr Q6HRS IV Last administered on 09/03/18at 05:46; Start 09/03/18 at 06:00 Metoclopramide HCl (Reglan Vial) 10 mg 1X ONCE IV Last administered on at 23:23; Start 09/02/18 at 23:15; Stop 09/02/18 at 23:16; Status DC Hyoscyamine (Anaspaz) 0.125 mg QID PO Last administered on 09/03/18at 08:51; Start 09/03/18 at 09:00 Pantoprazole Sodium (Protonix) 40 mg DAILYAC PO ; Start 09/04/18 at 07:30 Active Scripts Active Zofran (Ondansetron Hcl) 4 Mg Tablet 4 Mg PO PRN TID PRN nausea/vomiting Prevacid (Lansoprazole) 15 Mg Capsule.dr 15 Mg PO DAILY Levsin (Hyoscyamine Sulfate) 0.125 Mg Tablet 0.125 Mg PO QID Cephalexin 500 Mg Tablet 1 Tab PO TID Oxycodone-Acetaminophen 5-325 (Oxycodone Hcl/Acetaminophen) 1 Each Tablet 1 Tab PO PRN Q4HRS PRN Reported Augmentin 875-125 Tablet (Amoxicillin/Potassium Clav) 1 Each Tablet 1 Tab PO BID Allergies Allergies: Coded Allergies: No Known Drug Allergies (Unverified , 10/10/15) ROS Gastrointestinal: Yes Nausea, Yes Abdominal Pain Physical Exam General: Alert, Cooperative, No acute distress HEENT: Atraumatic Lungs: Normal air movement Heart: Regular rate Abdomen: Soft, Other (minimally TTP in the RUQ) Extremities: No clubbing Skin: Other (warm, dry) Neuro: Normal speech Vitals VITALS Vital Signs Date Time Temp Pulse Resp B/P (MAP) Pulse Ox O2 Delivery O2 Flow Rate FiO2 09/03/18 07:00 97.9 78 18 121/79 (93) 97 Room Air 97.9 Labs Labs Laboratory Tests Test 09/02/18 20:44 White Blood Count 13.7 x10^3/uL (4.0-11.0) Red Blood Count 4.21 x10^6/uL (3.50-5.40) Hemoglobin 12.3 g/dL (12.0-15.5) Hematocrit 36.4 % (36.0-47.0) Mean Corpuscular Volume 87 fL (79-100) Mean Corpuscular Hemoglobin 29 pg (25-35) Mean Corpuscular Hemoglobin Concent 34 g/dL (31-37) Red Cell Distribution Width 13.6 % (11.5-14.5) Platelet Count 369 x10^3/uL (140-400) Neutrophils (%) (Auto) 76 % (31-73) Lymphocytes (%) (Auto) 16 % (24-48) Monocytes (%) (Auto) 7 % (0-9) Eosinophils (%) (Auto) 1 % (0-3) Basophils (%) (Auto) 1 % (0-3) Neutrophils # (Auto) 10.4 x10^3uL (1.8-7.7) Lymphocytes # (Auto) 2.2 x10^3/uL (1.0-4.8) Monocytes # (Auto) 1.0 x10^3/uL (0.0-1.1) Eosinophils # (Auto) 0.1 x10^3/uL (0.0-0.7) Basophils # (Auto) 0.1 x10^3/uL (0.0-0.2) Sodium Level 140 mmol/L (136-145) Potassium Level 4.0 mmol/L (3.5-5.1) Chloride Level 101 mmol/L (98-107) Carbon Dioxide Level 28 mmol/L (21-32) Anion Gap 11 (6-14) Blood Urea Nitrogen 3 mg/dL (7-20) Creatinine 0.6 mg/dL (0.6-1.0) Estimated GFR (Cockcroft-Gault) 113.8 BUN/Creatinine Ratio 5 (6-20) Glucose Level 115 mg/dL (70-99) Calcium Level 8.7 mg/dL (8.5-10.1) Total Bilirubin 0.4 mg/dL (0.2-1.0) Aspartate Amino Transf (AST/SGOT) 15 U/L (15-37) Alanine Aminotransferase (ALT/SGPT) 13 U/L (14-59) Alkaline Phosphatase 52 U/L (46-116) Total Protein 7.6 g/dL (6.4-8.2) Albumin 3.7 g/dL (3.4-5.0) Albumin/Globulin Ratio 0.9 (1.0-1.7) Lipase 121 U/L (73-393) Laboratory Tests Test 09/02/18 20:44 White Blood Count 13.7 x10^3/uL (4.0-11.0) Red Blood Count 4.21 x10^6/uL (3.50-5.40) Hemoglobin 12.3 g/dL (12.0-15.5) Hematocrit 36.4 % (36.0-47.0) Mean Corpuscular Volume 87 fL (79-100) Mean Corpuscular Hemoglobin 29 pg (25-35) Mean Corpuscular Hemoglobin Concent 34 g/dL (31-37) Red Cell Distribution Width 13.6 % (11.5-14.5) Platelet Count 369 x10^3/uL (140-400) Neutrophils (%) (Auto) 76 % (31-73) Lymphocytes (%) (Auto) 16 % (24-48) Monocytes (%) (Auto) 7 % (0-9) Eosinophils (%) (Auto) 1 % (0-3) Basophils (%) (Auto) 1 % (0-3) Neutrophils # (Auto) 10.4 x10^3uL (1.8-7.7) Lymphocytes # (Auto) 2.2 x10^3/uL (1.0-4.8) Monocytes # (Auto) 1.0 x10^3/uL (0.0-1.1) Eosinophils # (Auto) 0.1 x10^3/uL (0.0-0.7) Basophils # (Auto) 0.1 x10^3/uL (0.0-0.2) Sodium Level 140 mmol/L (136-145) Potassium Level 4.0 mmol/L (3.5-5.1) Chloride Level 101 mmol/L (98-107) Carbon Dioxide Level 28 mmol/L (21-32) Anion Gap 11 (6-14) Blood Urea Nitrogen 3 mg/dL (7-20) Creatinine 0.6 mg/dL (0.6-1.0) Estimated GFR (Cockcroft-Gault) 113.8 BUN/Creatinine Ratio 5 (6-20) Glucose Level 115 mg/dL (70-99) Calcium Level 8.7 mg/dL (8.5-10.1) Total Bilirubin 0.4 mg/dL (0.2-1.0) Aspartate Amino Transf (AST/SGOT) 15 U/L (15-37) Alanine Aminotransferase (ALT/SGPT) 13 U/L (14-59) Alkaline Phosphatase 52 U/L (46-116) Total Protein 7.6 g/dL (6.4-8.2) Albumin 3.7 g/dL (3.4-5.0) Albumin/Globulin Ratio 0.9 (1.0-1.7) Lipase 121 U/L (73-393) Images Images US from last noc is reviewed Assessment/Plan Assessment/Plan symptomatic cholelithiasis subacute cholecystitis with her 's help translating explained risks of l/s lexii including but not limited to bleeding, infection, injury to bowel, liver or bile ducts with bile leak or bile blockage needing further surgical intervention, possible open or diarrhea post op. also persistent sx despite lexii questions answered she will proceed Thanks for consult WING BOURGEOIS MD Sep 03, 2018 09:14
[2018-09-03] MEDS: INSULIN LISPRO 300 UNITS/3 ML INSULN.PEN. SQ SCH ×3 (09:15→17:25)
[2018-09-03] MEDS ORDERED: DEXTROSE 50% 25 GM / 50ML DISP.SYRIN. IV PRN ×2 (09:15→11:30)
[2018-09-03] MEDS ORDERED: IV RINGERS,LACTATED 1000ML 1,000 ML IV SCH (09:22)
[2018-09-03] MEDS ORDERED: LIDOCAINE 1% PF 2 ML VIAL. ID PRN (09:30)
[2018-09-03] MEDS ORDERED: PROCHLORPERAZINE 10 MG/2 ML VIAL. IV PRN (09:30)
[2018-09-03] MEDS ORDERED: fentaNYL PF VIAL 100 MCG/2 ML VIAL IV PRN (09:30)
[2018-09-03] MEDS ORDERED: ONDANSETRON PF 4 MG/2 ML VIAL. IV PRN ×2 (09:30→11:30)
[2018-09-03] MEDS ORDERED: HYDROmorphone 2 MG/ML VIAL IV PRN (09:30)
[2018-09-03] MEDS ORDERED: MORPHINE SULFATE 2 MG/ML VIAL. IV PRN (09:30)
[2018-09-03] MEDS ORDERED: LIDOCAINE 2% PF 5 ML VIAL. ONE (09:32)
[2018-09-03] MEDS ORDERED: fentaNYL PF VIAL 100 MCG/2 ML VIAL ONE ×3 (09:32→12:01)
[2018-09-03] MEDS ORDERED: ROCURONIUM 50 MG/5 ML VIAL. ONE (09:32)
[2018-09-03] MEDS ORDERED: PROPOFOL 20 ML IV ONE (09:32)
[2018-09-03] MEDS ORDERED: SUCCINYLCHOLINE 200 MG/10 ML VIAL. ONE (09:32)
[2018-09-03 10:10] LABS: CHOLESTEROL/HDL RATIO 4.4
[2018-09-03] MEDS ORDERED: GLYCOPYRROLATE 1 MG/5 ML VIAL. ONE (10:20)
[2018-09-03] MEDS ORDERED: NEOSTIGMINE 10 MG/10 ML VIAL. ONE (10:20)
[2018-09-03] MEDS ORDERED: ONDANSETRON PF 4 MG/2 ML VIAL. ONE (10:45)
[2018-09-03] MEDS ORDERED: DEXAMETHASONE SOD PHOS 20 MG/5 ML VIAL. ONE (10:45)
[2018-09-03] MEDS ORDERED: DESFLURANE 31 TO 60 MINUTES IH ONE (10:45)
--- NOTE | 2018-09-03 11:12 | RAD ---
Operative cholangiogram. HISTORY: Cholelithiasis Images were obtained from an operative cholangiogram. There are surgical clips. There is a wire marker possibly a sponge. Contrast injection the cystic duct showed the common duct was normal in appearance. There is no filling defect or bile duct stone. IMPRESSION: 1. Negative operative cholangiogram. 2. Wire markers possibly sponges although not necessarily in the patient. Electronically signed by: Blake Lloyd MD (09/03/2018 11:09 AM) [facility]
[2018-09-03] MEDS ORDERED: 0.9 % SODIUM CHLORIDE 10 ML DISP.SYRIN. IV PRN (11:30)
[2018-09-03] MEDS ORDERED: diphenhydrAMINE HCL 25 MG CAPSULE PO PRN (11:30)
--- NOTE | 2018-09-03 11:32 | PDOC ---
BRIEF OPERATIVE NOTE Date: Sep 03, 2018 Pre-Op Diagnosis cholelithiasis, subacute cholecystitis Post-Op Diagnosis cholelithiasis, acute cholecystitis, omental adhesions to the abdominal wall Procedure Performed l/s ELIAS viveros Surgeon Dragan Anesthesia Type: General Blood Loss 20cc IV Fluid 1500cc Specimens Obtained GB Findings acute cholecystitis with a distended, edematous GB, omental adhesions to abdominal wall RUQ, low midline Complications none WING BOURGEOIS MD Sep 03, 2018 11:32
[2018-09-03] MEDS: DOCUSATE SODIUM 100 MG CAPSULE. PO SCH ×2 (12:00→21:24)
[2018-09-03] MEDS: fentaNYL PF VIAL 100 MCG/2 ML VIAL IV PRN ×3 (12:10→12:46)
[2018-09-03] MEDS: POTASSIUM CL 20MEQ-0.45% NACL 1,000 ML IV SCH ×2 (14:35→23:53)
[2018-09-03] MEDS: HYDROmorphone 2 MG/ML VIAL IV PRN ×2 (14:36→17:35)
--- NOTE | 2018-09-03 17:03 | OP ---
DATE OF SURGERY: 09/03/2018 PREOPERATIVE DIAGNOSES: Cholelithiasis with subacute cholecystitis. POSTOPERATIVE DIAGNOSES: Cholelithiasis with acute cholecystitis, omental adhesions to the abdominal wall. PROCEDURE: Laparoscopic cholecystectomy with cholangiogram, lysis of adhesions. SURGEON: Rudolph Bourgeois MD ANESTHESIA: General endotracheal. ESTIMATED BLOOD LOSS: 20. IV: 1500. INDICATIONS: The patient is a 33-year-old with right upper quadrant pain and ultrasound evidence of cholelithiasis and some gallbladder changes, brought for cholecystectomy. OPERATIVE FINDINGS: There was a single strand of omentum adhered to the abdominal wall in the right upper quadrant along with some omental adhesions in the low midline from previous procedures. The gallbladder was distended and edematous with some omental adhesions on the inferior aspect. A moderate amount of turbid fluid was present in the abdomen. No other abnormalities seen. DESCRIPTION OF PROCEDURE: The patient brought to the operating suite, given a general endotracheal anesthetic and the abdomen prepped and draped in usual sterile fashion. A supraumbilical incision was infiltrated with local, incised and a 5 mm Visiport used to safely gain access into the abdominal cavity, taking care to avoid injury to abdominal contents. Pneumoperitoneum established. Camera inserted. Inspection carried out with results as noted above. With the table in reverse Trendelenburg rolled to the left, the epigastric, midclavicular and lateral ports were placed. This allowed lysis of the omental adhesions off the abdominal wall with the LigaSure, being careful to avoid injury to any bowel. Once this was done, we were able to move the camera port inferiorly below the umbilicus and have better visualization of the right upper quadrant. The gallbladder was aspirated of approximately 80 mL of thick bile. This allowed grasping of the fundus and retracting superolaterally. An edematous adhesions along the inferior neck of the gallbladder were carefully swept off with blunt and cautery dissection, identifying and exposing the cystic duct and cystic artery. The duct was clipped on the gallbladder side. Cholangiograms were made. These were normal. In light of this, the catheter was removed. The cystic duct was clipped x 3 and divided, taking care to avoid injury or compromise of the common duct. The cystic artery was clipped x 2 and divided. The gallbladder freed from the bed with cautery dissection and placed in an EndoCatch bag. No evidence of bile leak in the fossa. Hemostasis obtained with cautery and a small piece of Surgicel. A 19-Icelandic round Garland drain was brought through the epigastric port out the lateral ports, sewn to the skin with a silk stitch and left in the subhepatic space for postoperative drainage. Table returned to level. Gallbladder delivered through the epigastric incision. Epigastric incision closed with interrupted 0 Vicryl suture. With intra-abdominal pressure at 6 cm of water, no bleeding seen from the epigastric closure or from the midclavicular port site after its removal or from the drain site. Abdomen decompressed, camera slowly removed, no bleeding seen. Skin incisions closed with subcuticular 4-0 Monocryl. Steri-Strips and sterile dressings applied. The patient awakened from her anesthetic and taken to the recovery room in satisfactory condition. RUDOLPH BOURGEOIS MD DR: BELKIS/kayley JOB#: [id number] / [id number]
[2018-09-03] MEDS: LACTOBACILLUS RHAMNOSUS GG 1 CAPSULE. PO SCH (21:24)
[2018-09-03] MEDS: HYDROcodone/APAP 5/325MG 1 TAB TABLET PO PRN ×2 (21:32→22:29)
[2018-09-04 00:07] LABS: HEMOGLOBIN A1C 5.7 % (4.8-5.6)
[2018-09-04] MEDS: PIPERACILLIN/TAZOBACTAM 3.375 GM in IV NORMAL SALINE 50ML 50 ML IV SCH ×3 (00:32→12:08)
[2018-09-04 03:00] VITALS: BP 108/69
[2018-09-04] MEDS: POTASSIUM CL 20MEQ-0.45% NACL 1,000 ML IV SCH (05:10)
[2018-09-04] MEDS: HYDROcodone/APAP 5/325MG 1 TAB TABLET PO PRN ×4 (05:16→23:46)
[2018-09-04] MEDS: HYDROmorphone 2 MG/ML VIAL IV PRN (06:02)
[2018-09-04 07:00] VITALS: BP 108/78
[2018-09-04] MEDS: INSULIN LISPRO 300 UNITS/3 ML INSULN.PEN. SQ SCH ×5 (07:43→21:00)
[2018-09-04] MEDS: HYOSCYAMINE 0.125 MG TAB.RAPDIS PO SCH ×4 (08:25→19:41)
[2018-09-04] MEDS: DOCUSATE SODIUM 100 MG CAPSULE. PO SCH ×2 (08:25→19:41)
[2018-09-04] MEDS: LACTOBACILLUS RHAMNOSUS GG 1 CAPSULE. PO SCH ×2 (08:25→19:41)
[2018-09-04] MEDS: PANTOPRAZOLE 40 MG TABLET.DR. PO SCH (08:25)
[2018-09-04] MEDS ORDERED: oxyCODONE/APAP 5/325 1 TAB TABLET PO PRN (09:30)
--- NOTE | 2018-09-04 09:51 | PDOC ---
ALVIN MCKENO [employer] AGENT 09/04/18 0951: SURGICAL PROGRESS NOTE Subjective tolerating clears incisional pain no emesis Vital Signs Vital Signs Date Time Temp Pulse Resp B/P (MAP) Pulse Ox O2 Delivery O2 Flow Rate FiO2 09/04/18 07:30 Room Air 09/04/18 07:00 98.0 73 18 108/78 (88) 92 98.0 09/03/18 13:05 2.0 I&O Intake and Output 09/04/18 06:59 Intake Total 2050 ml Output Total 20 ml Balance 2030 ml Intake Oral 200 ml IV Total 1850 ml Output Estimated Blood Loss 20 ml # Voids 3 General: Alert, Oriented X3, Cooperative, No acute distress Abdomen: Soft, Other (ND, drain serosang, lap sites dry) Labs Laboratory Tests Test 09/02/18 20:44 09/03/18 09:10 09/03/18 11:37 09/04/18 00:36 White Blood Count 13.7 x10^3/uL (4.0-11.0) Red Blood Count 4.21 x10^6/uL (3.50-5.40) Hemoglobin 12.3 g/dL (12.0-15.5) Hematocrit 36.4 % (36.0-47.0) Mean Corpuscular Volume 87 fL (79-100) Mean Corpuscular Hemoglobin 29 pg (25-35) Mean Corpuscular Hemoglobin Concent 34 g/dL (31-37) Red Cell Distribution Width 13.6 % (11.5-14.5) Platelet Count 369 x10^3/uL (140-400) Neutrophils (%) (Auto) 76 % (31-73) Lymphocytes (%) (Auto) 16 % (24-48) Monocytes (%) (Auto) 7 % (0-9) Eosinophils (%) (Auto) 1 % (0-3) Basophils (%) (Auto) 1 % (0-3) Neutrophils # (Auto) 10.4 x10^3uL (1.8-7.7) Lymphocytes # (Auto) 2.2 x10^3/uL (1.0-4.8) Monocytes # (Auto) 1.0 x10^3/uL (0.0-1.1) Eosinophils # (Auto) 0.1 x10^3/uL (0.0-0.7) Basophils # (Auto) 0.1 x10^3/uL (0.0-0.2) Sodium Level 140 mmol/L (136-145) Potassium Level 4.0 mmol/L (3.5-5.1) Chloride Level 101 mmol/L (98-107) Carbon Dioxide Level 28 mmol/L (21-32) Anion Gap 11 (6-14) Blood Urea Nitrogen 3 mg/dL (7-20) Creatinine 0.6 mg/dL (0.6-1.0) Estimated GFR (Cockcroft-Gault) 113.8 BUN/Creatinine Ratio 5 (6-20) Glucose Level 115 mg/dL (70-99) Calcium Level 8.7 mg/dL (8.5-10.1) Total Bilirubin 0.4 mg/dL (0.2-1.0) Aspartate Amino Transf (AST/SGOT) 15 U/L (15-37) Alanine Aminotransferase (ALT/SGPT) 13 U/L (14-59) Alkaline Phosphatase 52 U/L (46-116) Total Protein 7.6 g/dL (6.4-8.2) Albumin 3.7 g/dL (3.4-5.0) Albumin/Globulin Ratio 0.9 (1.0-1.7) Lipase 121 U/L (73-393) Hemoglobin A1c 5.7 % (4.8-5.6) Triglycerides Level 122 mg/dL (0-150) Cholesterol Level 155 mg/dL (0-200) LDL Cholesterol, Calculated 96 mg/dL (0-100) VLDL Cholesterol, Calculated 24 mg/dL (0-40) Non-HDL Cholesterol Calculated 120 mg/dL (0-129) HDL Cholesterol 35 mg/dL (40-60) Cholesterol/HDL Ratio 4.4 Glucose (Fingerstick) 155 mg/dL (70-99) 108 mg/dL (70-99) Test 09/04/18 07:24 Glucose (Fingerstick) 99 mg/dL (70-99) Laboratory Tests Test 09/03/18 11:37 09/04/18 00:36 09/04/18 07:24 Glucose (Fingerstick) 155 mg/dL (70-99) 108 mg/dL (70-99) 99 mg/dL (70-99) Assessment/Plan s/p lexii advance diet possible home later today WING BOURGEOIS MD 09/04/18 1725: SURGICAL PROGRESS NOTE Assessment/Plan pt seen as above home tomorrow ALVIN MCKEON APRN Sep 04, 2018 09:51 WING BOURGEOIS MD Sep 04, 2018 17:25
[2018-09-04 10:24] LABS: BASO % 1 % (0-3); EOS # 0.1 x10^3/uL (0.0-0.7); EOS % 1 % (0-3); HEMATOCRIT 31.1 % (36.0-47.0); HEMOGLOBIN 10.4 g/dL (12.0-15.5); LYMPH # 2.3 x10^3/uL (1.0-4.8); LYMPH % 23 % (24-48); MEAN CORPUSCULAR HEMOGLOBIN 29 pg (25-35); MEAN CORPUSCULAR HGB CONC 33 g/dL (31-37); MEAN CORPUSCULAR VOLUME 88 fL (79-100); MONO % 10 % (0-9); NEUT # 6.6 x10^3uL (1.8-7.7); NEUT % 66 % (31-73); PLATELET COUNT 296 x10^3/uL (140-400); RED BLOOD COUNT 3.55 x10^6/uL (3.50-5.40); RED CELL DISTRIBUTION WIDTH 13.6 % (11.5-14.5); WHITE BLOOD COUNT 10.1 x10^3/uL (4.0-11.0)
--- NOTE | 2018-09-04 10:59 | PDOC ---
PROGRESS NOTES Chief Complaint Chief Complaint Cholelithiasis with cholecystitis status post lap lexii: (09/03/18) POD #1 Indwelling MOLLY drain. History of Present Illness History of Present Illness Postop pain Some pain on the MOLLY drain site Drain is about almost full, last drained last night Only took couple bites of sandwich today at bedside Plan: Continue postop care I'm unable to DC today - still pain, still poor by mouth intake and no flatus yet CPM Vitals Vitals Vital Signs Date Time Temp Pulse Resp B/P (MAP) Pulse Ox O2 Delivery O2 Flow Rate FiO2 09/04/18 10:13 Room Air 09/04/18 07:00 98.0 73 18 108/78 (88) 92 98.0 09/03/18 13:05 2.0 Physical Exam General: Alert, Oriented X3, Cooperative, No acute distress Heart: Regular rate Lungs: Clear Abdomen: Soft, Other (ND, drain serosang, lap sites dry) Extremities: No clubbing, No cyanosis, No edema, Normal pulses, No tenderness/ swelling Skin: No rashes, No breakdown, No significant lesion Labs LABS Laboratory Tests Test 09/03/18 11:37 09/04/18 00:36 09/04/18 07:24 09/04/18 10:06 Glucose (Fingerstick) 155 mg/dL (70-99) 108 mg/dL (70-99) 99 mg/dL (70-99) White Blood Count 10.1 x10^3/uL (4.0-11.0) Red Blood Count 3.55 x10^6/uL (3.50-5.40) Hemoglobin 10.4 g/dL (12.0-15.5) Hematocrit 31.1 % (36.0-47.0) Mean Corpuscular Volume 88 fL (79-100) Mean Corpuscular Hemoglobin 29 pg (25-35) Mean Corpuscular Hemoglobin Concent 33 g/dL (31-37) Red Cell Distribution Width 13.6 % (11.5-14.5) Platelet Count 296 x10^3/uL (140-400) Neutrophils (%) (Auto) 66 % (31-73) Lymphocytes (%) (Auto) 23 % (24-48) Monocytes (%) (Auto) 10 % (0-9) Eosinophils (%) (Auto) 1 % (0-3) Basophils (%) (Auto) 1 % (0-3) Neutrophils # (Auto) 6.6 x10^3uL (1.8-7.7) Lymphocytes # (Auto) 2.3 x10^3/uL (1.0-4.8) Monocytes # (Auto) 1.0 x10^3/uL (0.0-1.1) Eosinophils # (Auto) 0.1 x10^3/uL (0.0-0.7) Basophils # (Auto) 0.0 x10^3/uL (0.0-0.2) Review of Systems Review of Systems Postop pain, poor PO, no flatus yet, the rest of ROS 14 point negative Comment Review of Relevant I have reviewed the following items scott (where applicable) has been applied. Labs Laboratory Tests Test 09/02/18 20:44 09/03/18 09:10 09/03/18 11:37 09/04/18 00:36 White Blood Count 13.7 x10^3/uL (4.0-11.0) Red Blood Count 4.21 x10^6/uL (3.50-5.40) Hemoglobin 12.3 g/dL (12.0-15.5) Hematocrit 36.4 % (36.0-47.0) Mean Corpuscular Volume 87 fL (79-100) Mean Corpuscular Hemoglobin 29 pg (25-35) Mean Corpuscular Hemoglobin Concent 34 g/dL (31-37) Red Cell Distribution Width 13.6 % (11.5-14.5) Platelet Count 369 x10^3/uL (140-400) Neutrophils (%) (Auto) 76 % (31-73) Lymphocytes (%) (Auto) 16 % (24-48) Monocytes (%) (Auto) 7 % (0-9) Eosinophils (%) (Auto) 1 % (0-3) Basophils (%) (Auto) 1 % (0-3) Neutrophils # (Auto) 10.4 x10^3uL (1.8-7.7) Lymphocytes # (Auto) 2.2 x10^3/uL (1.0-4.8) Monocytes # (Auto) 1.0 x10^3/uL (0.0-1.1) Eosinophils # (Auto) 0.1 x10^3/uL (0.0-0.7) Basophils # (Auto) 0.1 x10^3/uL (0.0-0.2) Sodium Level 140 mmol/L (136-145) Potassium Level 4.0 mmol/L (3.5-5.1) Chloride Level 101 mmol/L (98-107) Carbon Dioxide Level 28 mmol/L (21-32) Anion Gap 11 (6-14) Blood Urea Nitrogen 3 mg/dL (7-20) Creatinine 0.6 mg/dL (0.6-1.0) Estimated GFR (Cockcroft-Gault) 113.8 BUN/Creatinine Ratio 5 (6-20) Glucose Level 115 mg/dL (70-99) Calcium Level 8.7 mg/dL (8.5-10.1) Total Bilirubin 0.4 mg/dL (0.2-1.0) Aspartate Amino Transf (AST/SGOT) 15 U/L (15-37) Alanine Aminotransferase (ALT/SGPT) 13 U/L (14-59) Alkaline Phosphatase 52 U/L (46-116) Total Protein 7.6 g/dL (6.4-8.2) Albumin 3.7 g/dL (3.4-5.0) Albumin/Globulin Ratio 0.9 (1.0-1.7) Lipase 121 U/L (73-393) Hemoglobin A1c 5.7 % (4.8-5.6) Triglycerides Level 122 mg/dL (0-150) Cholesterol Level 155 mg/dL (0-200) LDL Cholesterol, Calculated 96 mg/dL (0-100) VLDL Cholesterol, Calculated 24 mg/dL (0-40) Non-HDL Cholesterol Calculated 120 mg/dL (0-129) HDL Cholesterol 35 mg/dL (40-60) Cholesterol/HDL Ratio 4.4 Glucose (Fingerstick) 155 mg/dL (70-99) 108 mg/dL (70-99) Test 09/04/18 07:24 09/04/18 10:06 Glucose (Fingerstick) 99 mg/dL (70-99) White Blood Count 10.1 x10^3/uL (4.0-11.0) Red Blood Count 3.55 x10^6/uL (3.50-5.40) Hemoglobin 10.4 g/dL (12.0-15.5) Hematocrit 31.1 % (36.0-47.0) Mean Corpuscular Volume 88 fL (79-100) Mean Corpuscular Hemoglobin 29 pg (25-35) Mean Corpuscular Hemoglobin Concent 33 g/dL (31-37) Red Cell Distribution Width 13.6 % (11.5-14.5) Platelet Count 296 x10^3/uL (140-400) Neutrophils (%) (Auto) 66 % (31-73) Lymphocytes (%) (Auto) 23 % (24-48) Monocytes (%) (Auto) 10 % (0-9) Eosinophils (%) (Auto) 1 % (0-3) Basophils (%) (Auto) 1 % (0-3) Neutrophils # (Auto) 6.6 x10^3uL (1.8-7.7) Lymphocytes # (Auto) 2.3 x10^3/uL (1.0-4.8) Monocytes # (Auto) 1.0 x10^3/uL (0.0-1.1) Eosinophils # (Auto) 0.1 x10^3/uL (0.0-0.7) Basophils # (Auto) 0.0 x10^3/uL (0.0-0.2) Laboratory Tests Test 09/03/18 11:37 09/04/18 00:36 09/04/18 07:24 09/04/18 10:06 Glucose (Fingerstick) 155 mg/dL (70-99) 108 mg/dL (70-99) 99 mg/dL (70-99) White Blood Count 10.1 x10^3/uL (4.0-11.0) Red Blood Count 3.55 x10^6/uL (3.50-5.40) Hemoglobin 10.4 g/dL (12.0-15.5) Hematocrit 31.1 % (36.0-47.0) Mean Corpuscular Volume 88 fL (79-100) Mean Corpuscular Hemoglobin 29 pg (25-35) Mean Corpuscular Hemoglobin Concent 33 g/dL (31-37) Red Cell Distribution Width 13.6 % (11.5-14.5) Platelet Count 296 x10^3/uL (140-400) Neutrophils (%) (Auto) 66 % (31-73) Lymphocytes (%) (Auto) 23 % (24-48) Monocytes (%) (Auto) 10 % (0-9) Eosinophils (%) (Auto) 1 % (0-3) Basophils (%) (Auto) 1 % (0-3) Neutrophils # (Auto) 6.6 x10^3uL (1.8-7.7) Lymphocytes # (Auto) 2.3 x10^3/uL (1.0-4.8) Monocytes # (Auto) 1.0 x10^3/uL (0.0-1.1) Eosinophils # (Auto) 0.1 x10^3/uL (0.0-0.7) Basophils # (Auto) 0.0 x10^3/uL (0.0-0.2) Medications Current Medications Ondansetron HCl (Zofran) 4 mg STK-MED ONCE .ROUTE ; Start 09/02/18 at 20:48; Stop 09/02/18 at 20:49; Status DC Fentanyl Citrate (Fentanyl 2ml Vial) 100 mcg STK-MED ONCE .ROUTE ; Start at 20:48; Stop 09/02/18 at 20:49; Status DC Sodium Chloride 1,000 ml @ 1,000 mls/hr 1X ONCE IV Last administered on at 20:58; Start 09/02/18 at 21:00; Stop 09/02/18 at 21:59; Status DC Ondansetron HCl (Zofran) 4 mg 1X ONCE IV Last administered on 09/02/18at 20:57; Start 09/02/18 at 21:00; Stop 09/02/18 at 21:01; Status DC Fentanyl Citrate (Fentanyl 2ml Vial) 50 mcg 1X ONCE IV Last administered on 09/02/18at 20:58; Start 09/02/18 at 21:00; Stop 09/02/18 at 21:01; Status DC Multi-Ingredient Mouthwash/Gargle (Gi Cocktail) 20 ml 1X ONCE SWSW Last administered on 09/02/18at 21:22; Start 09/02/18 at 21:15; Stop 09/02/18 at 21:16; Status DC Morphine Sulfate (Morphine Sulfate) 4 mg 1X ONCE IV Last administered on 22:32; Start 09/02/18 at 22:30; Stop 09/02/18 at 22:31; Status DC Ondansetron HCl (Zofran) 4 mg 1X ONCE IV Last administered on 09/02/18at 22:33; Start 09/02/18 at 22:30; Stop 09/02/18 at 22:31; Status DC Ondansetron HCl (Zofran) 4 mg PRN Q8HRS PRN IV NAUSEA/VOMITING; Start 09/02/18 at 22:45; Stop 09/03/18 at 13:33; Status DC Morphine Sulfate (Morphine Sulfate) 4 mg PRN Q2HR PRN IV PAIN Last administered on 09/03/18at 05:44; Start 09/02/18 at 22:45; Stop 09/03/18 at 13:36 ; Status DC Sodium Chloride 1,000 ml @ 100 mls/hr Q10H IV Last administered on 09/02/18at 23 :04; Start 09/02/18 at 22:45; Stop 09/03/18 at 22:44; Status DC Piperacillin Sod/ Tazobactam Sod (Zosyn Per Pharmacy) 1 each PRN DAILY PRN MC SEE COMMENTS; Start 09/02/18 at 22:45 Piperacillin Sod/ Tazobactam Sod 3.375 gm/Sodium Chloride 50 ml @ 100 mls/hr 1X ONCE IV Last administered on 09/02/18at 22:53; Start 09/02/18 at 23:00; Stop 09/02/18 at 23:29; Status DC Piperacillin Sod/ Tazobactam Sod 3.375 gm/Sodium Chloride 50 ml @ 100 mls/hr Q6HRS IV Last administered on 09/04/18 05:09; Start 09/03/18 at 06:00 Metoclopramide HCl (Reglan Vial) 10 mg 1X ONCE IV Last administered on at 23:23; Start 09/02/18 at 23:15; Stop 09/02/18 at 23:16; Status DC Hyoscyamine (Anaspaz) 0.125 mg QID PO Last administered on 09/04/18at 08:25; Start 09/03/18 at 09:00 Pantoprazole Sodium (Protonix) 40 mg DAILYAC PO Last administered on 09/04/18at 08:25; Start 09/04/18 at 07:30 Insulin Human Lispro (HumaLOG) 0-5 UNITS Q6HRS SQ ; Start 09/03/18 at 09:15; Stop 09/04/18 at 06:44; Status DC Dextrose (Dextrose 50%-Water Syringe) 12.5 gm PRN Q15MIN PRN IV SEE COMMENTS; Start 09/03/18 at 09:15; Stop 09/03/18 at 11:54; Status DC Metronidazole 100 ml @ 100 mls/hr 1X PREOP PRN IV protocol Last administered on 09/03/18at 10:01; Start 09/04/18 at 06:00; Stop 09/04/18 at 18:00 Ondansetron HCl (Zofran) 4 mg PRN Q6HRS PRN IV NAUSEA/VOMITING; Start 09/03/18 at 09:30; Stop 09/03/18 at 13:35; Status DC Fentanyl Citrate (Fentanyl 2ml Vial) 25 mcg PRN Q5MIN PRN IV MILD PAIN Last administered on 09/03/18at 12:46; Start 09/03/18 at 09:30; Stop 09/03/18 at 13:34 ; Status DC Fentanyl Citrate (Fentanyl 2ml Vial) 50 mcg PRN Q5MIN PRN IV MODERATE TO SEVERE PAIN; Start 09/03/18 at 09:30; Stop 09/03/18 at 13:34; Status DC Morphine Sulfate (Morphine Sulfate) 1 mg PRN Q10MIN PRN IV SEVERE PAIN; Start 09/03/18 at 09:30; Stop 09/03/18 at 13:34; Status DC Ringer's Solution 1,000 ml @ 30 mls/hr Q24H IV ; Start 09/03/18 at 09:22; Stop 09/03/18 at 21:21; Status DC Lidocaine HCl (Xylocaine-Mpf 1% 2ml Vial) 2 ml PRN 1X PRN ID PRIOR TO IV START ; Start 09/03/18 at 09:30; Stop 09/03/18 at 13:34; Status DC Hydromorphone HCl (Dilaudid) 0.5 mg PRN Q10MIN PRN IV SEV PAIN, Second choice; Start 09/03/18 at 09:30; Stop 09/03/18 at 10:00; Status DC Prochlorperazine Edisylate (Compazine) 5 mg PACU PRN PRN IV NAUSEA, MRX1; Start 09/03/18 at 09:30; Stop 09/03/18 at 13:35; Status DC Bupivacaine HCl/ Epinephrine Bitart (Sensorcain-Mpf Epi 0.5%-1:[id number]) 30 ml STK -MED ONCE .ROUTE Last administered on 09/03/18at 10:14; Start 09/03/18 at 08:26 ; Stop 09/03/18 at 09:26; Status DC Glucagon (Glucagen) 1 mg STK-MED ONCE .ROUTE ; Start 09/03/18 at 08:26; Stop 04/14 at 09:26; Status DC Iohexol (Omnipaque 300 Mg/ml) 100 ml STK-MED ONCE .ROUTE Last administered on at 10:14; Start 09/03/18 at 08:26; Stop 09/03/18 at 09:26; Status DC Cellulose (Surgicel Hemostat 4x8) 1 each STK-MED ONCE .ROUTE Last administered on 09/03/18at 10:14; Start 09/03/18 at 08:26; Stop 09/03/18 at 09:26; Status DC Propofol 20 ml @ As Directed STK-MED ONCE IV ; Start 09/03/18 at 09:32; Stop 04/14 at 09:33; Status DC Lidocaine HCl (Lidocaine Pf 2% Vial) 5 ml STK-MED ONCE .ROUTE ; Start 09/03/18 at 09:32; Stop 09/03/18 at 09:33; Status DC Fentanyl Citrate (Fentanyl 2ml Vial) 100 mcg STK-MED ONCE .ROUTE ; Start at 09:32; Stop 09/03/18 at 09:33; Status DC Succinylcholine Chloride (Anectine) 200 mg STK-MED ONCE .ROUTE ; Start 09/03/18 at 09:32; Stop 09/03/18 at 09:33; Status DC Rocuronium [place] (Zemuron) 50 mg STK-MED ONCE .ROUTE ; Start 09/03/18 at 09:32 ; Stop 09/03/18 at 09:33; Status DC Metronidazole 100 ml @ As Directed STK-MED ONCE IV ; Start 09/03/18 at 09:51; Stop 09/03/18 at 09:52; Status DC Neostigmine Methylsulfate (Bloxiverz) 10 mg STK-MED ONCE .ROUTE ; Start at 10:20; Stop 09/03/18 at 10:21; Status DC Glycopyrrolate (Robinul) 1 mg STK-MED ONCE .ROUTE ; Start 09/03/18 at 10:20; Stop 09/03/18 at 10:21; Status DC Fentanyl Citrate (Fentanyl 2ml Vial) 100 mcg STK-MED ONCE .ROUTE ; Start at 10:32; Stop 09/03/18 at 10:33; Status DC Desflurane (Suprane) 30 ml STK-MED ONCE IH ; Start 09/03/18 at 10:45; Stop 09/03 at 10:46; Status DC Dexamethasone Sodium Phosphate (Decadron) 20 mg STK-MED ONCE .ROUTE ; Start 04/14 at 10:45; Stop 09/03/18 at 10:46; Status DC Ondansetron HCl (Zofran) 4 mg STK-MED ONCE .ROUTE ; Start 09/03/18 at 10:45; Stop 09/03/18 at 10:46; Status DC Diphenhydramine HCl (Benadryl) 25 mg PRN Q6HRS PRN PO ITCHING; Start 09/03/18 at 11:30 Sodium Chloride (Normal Saline Flush) 3 ml QSHIFT PRN IV AFTER MEDS AND BLOOD DRAWS; Start 09/03/18 at 11:30 Potassium Chloride/Sodium Chloride 1,000 ml @ 80 mls/hr [id number] IV Last administered on 09/04/18at 05:10; Start 09/03/18 at 11:23 Dextrose (Dextrose 50%-Water Syringe) 12.5 gm PRN Q15MIN PRN IV SEE COMMENTS; Start 09/03/18 at 11:30 Acetaminophen/ Hydrocodone Bitart (Lortab 5/325) 1 tab PRN Q4HRS PRN PO MILD PAIN Last administered on 09/03/18at 22:29; Start 09/03/18 at 11:30 Acetaminophen/ Hydrocodone Bitart (Lortab 5/325) 2 tab PRN Q4HRS PRN PO MODERATE PAIN, SEVERE PAIN Last administered on 09/04/18at 10:13; Start 09/03/18 at 11:30 Hydromorphone HCl (Dilaudid) 0.5 mg PRN Q3HRS PRN IV PAIN Last administered on 09/04/18at 06:02; Start 09/03/18 at 11:30 Docusate Sodium (Colace) 100 mg BID PO Last administered on 09/04/18at 08:25; Start 09/03/18 at 12:00 Ondansetron HCl (Zofran) 4 mg PRN Q6HRS PRN IV NAUESA, 1ST CHOICE; Start at 11:30 Fentanyl Citrate (Fentanyl 2ml Vial) 100 mcg STK-MED ONCE .ROUTE ; Start at 12:01; Stop 09/03/18 at 12:02; Status DC Lactobacillus Rhamnosus (Culturelle) 1 cap BID PO Last administered on at 08:25; Start 09/03/18 at 21:00 Insulin Human Lispro (HumaLOG) 0-5 UNITS TIDWMEALHC SQ ; Start 09/04/18 at 08:00 Oxycodone/ Acetaminophen (Percocet 5/325) 1 tab PRN Q4HRS PRN PO MILD PAIN 2ND CHOICE; Start 09/04/18 at 09:30 Active Scripts Active Zofran (Ondansetron Hcl) 4 Mg Tablet 4 Mg PO PRN TID PRN nausea/vomiting Prevacid (Lansoprazole) 15 Mg Capsule.dr 15 Mg PO DAILY Levsin (Hyoscyamine Sulfate) 0.125 Mg Tablet 0.125 Mg PO QID Cephalexin 500 Mg Tablet 1 Tab PO TID Oxycodone-Acetaminophen 5-325 (Oxycodone Hcl/Acetaminophen) 1 Each Tablet 1 Tab PO PRN Q4HRS PRN Reported Augmentin 875-125 Tablet (Amoxicillin/Potassium Clav) 1 Each Tablet 1 Tab PO BID Vitals/I & O Vital Sign - Last 24 Hours 09/03/18 09/03/18 09/03/18 09/03/18 11:32 11:45 11:47 12:02 Temp 99.6 99.6 99.6 99.6 99.6 99.6 Pulse 75 72 73 Resp 16 18 20 B/P (MAP) 109/64 105/64 107/64 Pulse Ox 97 98 97 O2 Delivery Simple Mask Mask Simple Mask Nasal Cannula O2 Flow Rate 8 8 8 2 09/03/18 09/03/18 09/03/18 09/03/18 12:10 12:15 12:17 12:20 Temp 99.6 99.6 Pulse 82 79 Resp 18 18 19 B/P (MAP) 104/66 (79) 101/63 Pulse Ox 92 95 97 97 O2 Delivery Room Air Room Air Nasal Cannula Nasal Cannula O2 Flow Rate 2 2.0 09/03/18 09/03/18 09/03/18 09/03/18 12:30 12:32 12:45 12:46 Temp 99.4 99.4 Pulse 78 82 74 Resp 19 18 B/P (MAP) 103/68 (80) 103/66 111/73 (86) Pulse Ox 98 98 98 98 O2 Delivery Room Air Nasal Cannula Room Air Nasal Cannula O2 Flow Rate 2.0 2.0 09/03/18 09/03/18 09/03/18 09/03/18 13:00 13:05 13:15 13:45 Temp 98.4 98.4 Pulse 89 84 80 95 Resp 20 B/P (MAP) 109/66 (80) 109/64 (79) 114/72 (86) 115/70 (85) Pulse Ox 98 96 98 89 O2 Delivery Room Air Nasal Cannula Room Air Room Air O2 Flow Rate 2.0 09/03/18 09/03/18 09/03/18 09/03/18 14:15 15:15 16:15 17:35 Pulse 91 92 102 B/P (MAP) 121/72 (88) 106/69 (81) 111/70 (84) Pulse Ox 90 93 95 O2 Delivery Room Air Room Air Room Air Room Air 09/03/18 09/03/18 09/03/18 09/03/18 19:30 20:00 21:32 22:29 Temp 98.2 98.2 Pulse 98 Resp 18 20 20 B/P (MAP) 108/77 (87) Pulse Ox 93 93 93 O2 Delivery Room Air Room Air Nasal Cannula Room Air 09/03/18 09/03/18 09/04/18 09/04/18 23:00 23:29 03:00 05:16 Temp 99.3 98.3 99.3 98.3 Pulse 93 79 Resp 18 20 18 20 B/P (MAP) 98/56 (70) 108/69 (82) Pulse Ox 98 98 92 92 O2 Delivery Room Air Room Air Room Air Room Air 09/04/18 09/04/18 09/04/18 09/04/18 06:02 06:16 06:32 07:00 Temp 98.0 98.0 Pulse 73 Resp 20 20 20 18 B/P (MAP) 108/78 (88) Pulse Ox 92 92 92 92 O2 Delivery Room Air Room Air Room Air Room Air 09/04/18 09/04/18 07:30 10:13 O2 Delivery Room Air Room Air Intake and Output 09/03/18 09/03/18 09/04/18 14:59 22:59 06:59 Intake Total 1850 ml 200 ml Output Total 20 ml Balance 1830 ml 200 ml LALITHA PONCE MD Sep 04, 2018 10:58
[2018-09-04 11:00] VITALS: BP 111/70
[2018-09-04 11:02] LABS: CREATININE 0.6 mg/dL (0.6-1.0); GFR 113.8
[2018-09-04 15:00] VITALS: BP 114/77
--- NOTE | 2018-09-04 16:09 | NUR ---
SW following. Discussed with RN, pt is from home with . Pt is self pay. SW met with pt to give self pay resources. Pt and pt's are wondering if someone is able to talk with them about the hospital bill. SW to speak with someone from registration/billing. RN notified.
[2018-09-04 19:00] VITALS: BP 115/73
[2018-09-04 23:00] VITALS: BP 135/84
[2018-09-05] MEDS: POTASSIUM CL 20MEQ-0.45% NACL 1,000 ML IV SCH (00:53)
[2018-09-05 02:47] VITALS: BP 118/79
[2018-09-05] MEDS: HYDROcodone/APAP 5/325MG 1 TAB TABLET PO PRN ×2 (05:35→09:50)
[2018-09-05] MEDS: PANTOPRAZOLE 40 MG TABLET.DR. PO SCH (05:39)
[2018-09-05 07:00] VITALS: BP 122/89
[2018-09-05] MEDS: LACTOBACILLUS RHAMNOSUS GG 1 CAPSULE. PO SCH (08:49)
[2018-09-05] MEDS: DOCUSATE SODIUM 100 MG CAPSULE. PO SCH (08:49)
[2018-09-05] MEDS: HYOSCYAMINE 0.125 MG TAB.RAPDIS PO SCH (08:49)
[2018-09-05] MEDS: INSULIN LISPRO 300 UNITS/3 ML INSULN.PEN. SQ SCH (08:50)
--- NOTE | 2018-09-05 09:07 | PDOC ---
SURGICAL PROGRESS NOTE Subjective feels better pain improved no nausea tolerated diet Vital Signs Vital Signs Date Time Temp Pulse Resp B/P (MAP) Pulse Ox O2 Delivery O2 Flow Rate FiO2 09/05/18 07:06 20 93 Room Air 09/05/18 07:00 98.0 80 122/89 (100) 98.0 I&O Intake and Output 09/05/18 06:59 Output Total 170 ml Balance -170 ml Output Drainage Total 170 ml General: Alert, Oriented X3, Cooperative, No acute distress Abdomen: Soft, Other (lap dressings dry, mohit serosang) Labs Laboratory Tests Test 09/03/18 09:10 09/03/18 11:37 09/04/18 00:36 09/04/18 07:24 Hemoglobin A1c 5.7 % (4.8-5.6) Triglycerides Level 122 mg/dL (0-150) Cholesterol Level 155 mg/dL (0-200) LDL Cholesterol, Calculated 96 mg/dL (0-100) VLDL Cholesterol, Calculated 24 mg/dL (0-40) Non-HDL Cholesterol Calculated 120 mg/dL (0-129) HDL Cholesterol 35 mg/dL (40-60) Cholesterol/HDL Ratio 4.4 Glucose (Fingerstick) 155 mg/dL (70-99) 108 mg/dL (70-99) 99 mg/dL (70-99) Test 09/04/18 10:06 09/04/18 11:18 09/04/18 16:30 09/04/18 21:22 White Blood Count 10.1 x10^3/uL (4.0-11.0) Red Blood Count 3.55 x10^6/uL (3.50-5.40) Hemoglobin 10.4 g/dL (12.0-15.5) Hematocrit 31.1 % (36.0-47.0) Mean Corpuscular Volume 88 fL (79-100) Mean Corpuscular Hemoglobin 29 pg (25-35) Mean Corpuscular Hemoglobin Concent 33 g/dL (31-37) Red Cell Distribution Width 13.6 % (11.5-14.5) Platelet Count 296 x10^3/uL (140-400) Neutrophils (%) (Auto) 66 % (31-73) Lymphocytes (%) (Auto) 23 % (24-48) Monocytes (%) (Auto) 10 % (0-9) Eosinophils (%) (Auto) 1 % (0-3) Basophils (%) (Auto) 1 % (0-3) Neutrophils # (Auto) 6.6 x10^3uL (1.8-7.7) Lymphocytes # (Auto) 2.3 x10^3/uL (1.0-4.8) Monocytes # (Auto) 1.0 x10^3/uL (0.0-1.1) Eosinophils # (Auto) 0.1 x10^3/uL (0.0-0.7) Basophils # (Auto) 0.0 x10^3/uL (0.0-0.2) Sodium Level 140 mmol/L (136-145) Potassium Level 4.0 mmol/L (3.5-5.1) Chloride Level 102 mmol/L (98-107) Carbon Dioxide Level 29 mmol/L (21-32) Anion Gap 9 (6-14) Blood Urea Nitrogen 7 mg/dL (7-20) Creatinine 0.6 mg/dL (0.6-1.0) Estimated GFR (Cockcroft-Gault) 113.8 Glucose Level 111 mg/dL (70-99) Calcium Level 8.0 mg/dL (8.5-10.1) Glucose (Fingerstick) 104 mg/dL (70-99) 86 mg/dL (70-99) 100 mg/dL (70-99) Test 09/05/18 07:29 Glucose (Fingerstick) 86 mg/dL (70-99) Laboratory Tests Test 09/04/18 10:06 09/04/18 11:18 09/04/18 16:30 09/04/18 21:22 White Blood Count 10.1 x10^3/uL (4.0-11.0) Red Blood Count 3.55 x10^6/uL (3.50-5.40) Hemoglobin 10.4 g/dL (12.0-15.5) Hematocrit 31.1 % (36.0-47.0) Mean Corpuscular Volume 88 fL (79-100) Mean Corpuscular Hemoglobin 29 pg (25-35) Mean Corpuscular Hemoglobin Concent 33 g/dL (31-37) Red Cell Distribution Width 13.6 % (11.5-14.5) Platelet Count 296 x10^3/uL (140-400) Neutrophils (%) (Auto) 66 % (31-73) Lymphocytes (%) (Auto) 23 % (24-48) Monocytes (%) (Auto) 10 % (0-9) Eosinophils (%) (Auto) 1 % (0-3) Basophils (%) (Auto) 1 % (0-3) Neutrophils # (Auto) 6.6 x10^3uL (1.8-7.7) Lymphocytes # (Auto) 2.3 x10^3/uL (1.0-4.8) Monocytes # (Auto) 1.0 x10^3/uL (0.0-1.1) Eosinophils # (Auto) 0.1 x10^3/uL (0.0-0.7) Basophils # (Auto) 0.0 x10^3/uL (0.0-0.2) Sodium Level 140 mmol/L (136-145) Potassium Level 4.0 mmol/L (3.5-5.1) Chloride Level 102 mmol/L (98-107) Carbon Dioxide Level 29 mmol/L (21-32) Anion Gap 9 (6-14) Blood Urea Nitrogen 7 mg/dL (7-20) Creatinine 0.6 mg/dL (0.6-1.0) Estimated GFR (Cockcroft-Gault) 113.8 Glucose Level 111 mg/dL (70-99) Calcium Level 8.0 mg/dL (8.5-10.1) Glucose (Fingerstick) 104 mg/dL (70-99) 86 mg/dL (70-99) 100 mg/dL (70-99) Test 09/05/18 07:29 Glucose (Fingerstick) 86 mg/dL (70-99) Assessment/Plan s/p lexii ok to dc home, dc drain FU 1 week ALVIN MCKEON APRN Sep 05, 2018 09:07
--- NOTE | 2018-09-05 09:21 | NUR ---
SW following. Someone from [facility] will visit with pt today to discuss pt's hospital bill. Pt likely to discharge home today with self care. No SW needs.
[2018-09-05 11:00] VITALS: BP 126/79
--- NOTE | 2018-09-05 11:22 | PDOC3 ---
Discharge Summary Visit Information Date of Admission: Sep 02, 2018 Date of Discharge: Sep 05, 2018 Admitting Diagnosis Comment: Cholelithiasis with cholecystitis status post lap lexii: (09/03/18) POD #1 Indwelling MOLLY drain.- removed on day of dc Brief Hospital Course Allergies Allergies Coded Allergies Type Severity Reaction Last Updated Verified No Known Drug Allergies 10/10/15 No Vital Signs Vital Signs Date Time Temp Pulse Resp B/P (MAP) Pulse Ox O2 Delivery O2 Flow Rate FiO2 09/05/18 09:50 Room Air 09/05/18 07:06 20 93 09/05/18 07:00 98.0 80 122/89 (100) 98.0 Lab Results Laboratory Tests Test 09/03/18 11:37 09/04/18 00:36 09/04/18 07:24 09/04/18 10:06 Glucose (Fingerstick) 155 mg/dL (70-99) 108 mg/dL (70-99) 99 mg/dL (70-99) White Blood Count 10.1 x10^3/uL (4.0-11.0) Red Blood Count 3.55 x10^6/uL (3.50-5.40) Hemoglobin 10.4 g/dL (12.0-15.5) Hematocrit 31.1 % (36.0-47.0) Mean Corpuscular Volume 88 fL (79-100) Mean Corpuscular Hemoglobin 29 pg (25-35) Mean Corpuscular Hemoglobin Concent 33 g/dL (31-37) Red Cell Distribution Width 13.6 % (11.5-14.5) Platelet Count 296 x10^3/uL (140-400) Neutrophils (%) (Auto) 66 % (31-73) Lymphocytes (%) (Auto) 23 % (24-48) Monocytes (%) (Auto) 10 % (0-9) Eosinophils (%) (Auto) 1 % (0-3) Basophils (%) (Auto) 1 % (0-3) Neutrophils # (Auto) 6.6 x10^3uL (1.8-7.7) Lymphocytes # (Auto) 2.3 x10^3/uL (1.0-4.8) Monocytes # (Auto) 1.0 x10^3/uL (0.0-1.1) Eosinophils # (Auto) 0.1 x10^3/uL (0.0-0.7) Basophils # (Auto) 0.0 x10^3/uL (0.0-0.2) Sodium Level 140 mmol/L (136-145) Potassium Level 4.0 mmol/L (3.5-5.1) Chloride Level 102 mmol/L (98-107) Carbon Dioxide Level 29 mmol/L (21-32) Anion Gap 9 (6-14) Blood Urea Nitrogen 7 mg/dL (7-20) Creatinine 0.6 mg/dL (0.6-1.0) Estimated GFR (Cockcroft-Gault) 113.8 Glucose Level 111 mg/dL (70-99) Calcium Level 8.0 mg/dL (8.5-10.1) Test 09/04/18 11:18 09/04/18 16:30 09/04/18 21:22 09/05/18 07:29 Glucose (Fingerstick) 104 mg/dL (70-99) 86 mg/dL (70-99) 100 mg/dL (70-99) 86 mg/dL (70-99) Laboratory Tests Test 09/04/18 16:30 09/04/18 21:22 09/05/18 07:29 Glucose (Fingerstick) 86 mg/dL (70-99) 100 mg/dL (70-99) 86 mg/dL (70-99) Brief Hospital Course Ms. Walker is a 33 old female who was admitted for symptomatically cholelithiasis with signs of cholecystitis. Initially was adamant to have surgery. She eventually underwent surgery and needing MOLLY drain for 24-48 hrs. Now MOLLY drain is out or tolerating diet and waiting well and cleared from [facility] to go home Follow up instructions follow-up [facility] 1 week call their office to schedule Consults performed [facility] Procedures performed a cholecystectomy Discharge Information Condition at Discharge: Improved, Stable Disposition/Orders: D/C to Home Scheduled Amoxicillin/Potassium Clav (Augmentin 875-125 Tablet) 1 Each Tablet, 1 TAB PO BID, #10 (Reported) Entered as Reported by: ELAINE ADAIR on 10/12/15 7087 Last Action: HELD on 09/03/18 0740 by CHARAN ANTONIO MD Cephalexin (Cephalexin) 500 Mg Tablet, 1 TAB PO TID, #30 Prescribed by: ARA TORRES DO on 09/02/18912 Last Action: HELD on 09/03/18739 by CHARAN ANTONIO MD Hyoscyamine Sulfate (Levsin) 0.125 Mg Tablet, 0.125 MG PO QID, #30 Prescribed by: ARA TORRES DO on 09/02/18912 Last Action: Converted on 09/03/18740 by CHARAN ANTONIO MD Lansoprazole (Prevacid) 15 Mg Capsule.dr, 15 MG PO DAILY, #20 Prescribed by: ARA TORRES DO on 09/02/18912 Last Action: Converted on 09/03/18740 by CHARAN ANTONIO MD Scheduled PRN Ondansetron Hcl (Zofran) 4 Mg Tablet, 4 MG PO PRN TID PRN for NAUSEA/VOMITING, # 15 nausea/vomiting Prescribed by: ARA TORRES DO on 09/02/18912 Last Action: HELD on 09/03/18739 by CHARAN ANTONIO MD Oxycodone Hcl/Acetaminophen (Oxycodone-Acetaminophen 5-325) 1 Each Tablet, 1 TAB PO PRN Q4HRS PRN for MILD PAIN, 1ST CHOICE, #30 Ref 0 Prescribed by: Carlee Whitman on 10/12/15831 Last Action: HELD on 09/03/18739 by MD KRIS SILVERIO CHERRIE Y MD Sep 05, 2018 11:22
--- NOTE | 2018-09-05 12:34 | NUR ---
Discharge instructions and prescriptions given to pt. Answered questions and concerns, info to f/u with Dr. Archibald given to pt and her . Pt dc by wc to ER entrance accompanied by family.
--- NOTE | 2018-09-05 16:08 | PATHOLOGY ---
[facility] Accession Number: [id number] . 01 Material submitted: . GALLBLADDER . 01 Clinical history: . Cholelithiasis with acute cholecystitis . 02 Diagnosis: Gallbladder, laparoscopic cholecystectomy: - Cholelithiasis. - Acute cholecystitis. ([facility] 09/05/2018) [facility]/09/05/2018 . 02 Comment: There is no evidence of malignancy. ([facility] 09/05/2018) . 02 Electronically signed: . Wilmer Jain MD, Pathologist NPI- [id number] . 01 Gross description: . The specimen is received in formalin, labeled "Marsha Walker, gallbladder", is an intact, distended gallbladder measuring 8.2 x 3.5 x 2.5 cm with a dull, lin-price serosa. The cystic duct is impacted by a yellow, bosselated calculus measuring 0.7 x 0.5 x 0.5 cm and is dilated. The lumen is filled with a price-brown viscous bile and brown clot admixed with multiple bosselated yellow calculi and its fragments measuring 2.0 x 2.0 x 0.7 cm in aggregate. The mucosa is price-brown, granular and the fibrous wall has an average thickness of 0.2 cm. No discrete masses are identified. Slope [employer] Operator tissue is submitted in A1. ([facility]; 09/04/2018) [facility] . 02 Pathologist provided ICD-10: K80.00 . 02 CPT . 980783 Specimen Comment: A courtesy copy of this report has been sent to Specimen Comment: [phone]. Specimen Comment: Report sent to Performed at: [address], [place], [place] [id number] MD Jed Mojica MD Phone: [phone] Performed at: [address] [id number] MD Wilmer Jain MD Phone: [phone]
== END 2018-09-05 12:35 | disposition home or self-care (01) | DRG 418 ==
LOC: ER 19:18 → 4 NORTH 22:00
PROVIDERS: ADMIT Internal Medicine; ATTEND Internal Medicine
PROC: BF131ZZ Fluoroscopy of Gallbladder and Bile Ducts using Low Osmolar Contrast (ICD-10-PCS; 2018-09-03)
PROC: 0FT44ZZ Resection of Gallbladder, Percutaneous Endoscopic Approach (ICD-10-PCS; principal; 2018-09-03 09:45)
DX: K80.00 Calculus of gallbladder with acute cholecystitis without obstruction (principal); N39.0 Urinary tract infection, site not specified; K82.8 Other specified diseases of gallbladder; R73.9 Hyperglycemia, unspecified; E66.3 Overweight; Z98.51 Tubal ligation status; Z90.49 Acquired absence of other specified parts of digestive tract; Z68.29 Body mass index [BMI] 29.0-29.9, adult; Z90.710 Acquired absence of both cervix and uterus; Z86.32 Personal history of gestational diabetes; Z87.440 Personal history of urinary (tract) infections; Z83.3 Family history of diabetes mellitus
CPT/HCPCS: 36415; 74300; 76705; 80048; 80053; 80061; 82962; 83036; 83690; 85025; 88304; 96361; 96365; 96375; 96376; A7015; J0330; J1100; J1170; J1610; J1815; J2001; J2270; J2405; J2543; J2704; J2710; J2765; J3010; J3490; J7030; J7120; Q9967; 99285-25